=== PATIENT | female | born 1985 | race Two or more races ===

== ENCOUNTER 2024-09-01 11:43 | Emergency (ER) | payer MEDICAID, SELFPAY ==
[2024-09-01 11:54] VITALS: BP 145/89; PULSE 90; RESP 19; TEMP 36.6; O2SAT 98; BMI 36.9
--- NOTE | 2024-09-01 12:06 | XR_ITS ---
Examination: CT lumbar spine, without contrast. 2-D sagittal reconstructions. 2-D coronal reconstructions. 3-D reconstructions. Date and time of exam:09/01/2024, 12:25 PM INDICATION: Back pain CTDI: vol (mGy):35.3 DLP: (mGycm):78948 Technique: Multiple 1.25 mm axial sections of the lumbar spine have been obtained. 2-D sagittal and coronal reconstructions have been obtained. 3-D reconstructions have been obtained. Low dose protocols were performed. One or more of the following dose reduction techniques were used; automated exposure control, adjustment of the mA and/or KV according to patient size, use of iterative reconstruction technique. Findings: No evidence of fracture, dislocation or subluxation. Minimal degenerative changes are seen T12-S1 and S1-S2 with minimal loss of normal disc space height and small marginal osteophytes. No other significant degenerative changes seen. No foreign body. No soft tissue abnormality IMPRESSION: No acute bony abnormality. Mild degenerative changes as above.
--- NOTE | 2024-09-01 12:07 | PD.EDRME ---
Rapid Medical Screening Exam RME Arrival date/time: 09/01/24 11:43 39-year-old female presents emergency dept today for complaints of back pain Chief Complaint: Back Pain/Injury Time Seen by Provider: 09/01/24 12:00 Vital signs: Vital Signs Temperature 97.9 F 09/01/24 11:54 Pulse Rate 90 09/01/24 11:54 Respiratory Rate 19 09/01/24 11:54 Blood Pressure 145/89 H 09/01/24 11:54 Pulse Oximetry (%) 98 09/01/24 11:54
[2024-09-01 12:45] LABS: Collection Type, Urine Clean Catch
[2024-09-01 12:48] LABS: Basophils # (Auto) 0.1 Thou/mm3 (0.0-0.2); Basophils % (Auto) 1 % (0-2.5); Eosinophils # (Auto) 0.1 Thou/mm3 (0.0-0.5); Eosinophils % (Auto) 1 % (0-10); Hematocrit 42.8 % (36.0-46.0); Hemoglobin 14.4 g/dL (12.0-16.0); Immature Granulocytes % (Auto) 0 % (0-0); Immature Granulocytes Auto 0.01 Thou/mm3 (0.00-0.00); Lymphocytes # (Auto) 2.7 Thou/mm3 (1.0-4.8); Lymphocytes % (Auto) 33 % (10-50); Mean Corpuscular HGB Conc 33.6 g/dl (31.0-37.0); Mean Corpuscular Hemoglobin 30.2 pg (25.0-35.0); Mean Corpuscular Volume 90 fL (80-100); Monocytes # (Auto) 0.6 Thou/mm3 (0.0-0.8); Monocytes % (Auto) 7 % (0-12); Neutrophils # (Auto) 4.7 Thou/mm3 (1.8-7.7); Neutrophils % (Auto) 58 % (37-80); Nucleated Red Blood Cell % 0 /100 WBC (0); Platelet Count 270 Thou/mm3 (140-440); RDW Standard Deviation 44.3 fL (36.4-46.3); Red Blood Count 4.77 Miln/mm3 (4.00-5.20); White Blood Count 8.1 Thou/mm3 (3.6-11.0)
[2024-09-01 12:53] LABS: Bacteria,Urine Rare; Bilirubin,Urine Negative (Negative); Blood,Urine Negative (Negative); Clarity,Urine Clear (Clear/Hazy); Color,Urine Lt-Yellow (Lt Yel-Yel); Culture Indicated,Urine Not Indicated; Glucose, Urine Negative (Negative); Ketones,Urine Negative (Negative); Leukocyte Esterase,Urine Negative (Negative); Nitrite,Urine Negative (Negative); PH,Urine 5.5 (5.0-7.0); Protein,Urine Negative (Neg - Trace); RBC,Urine 1 /hpf (0-3); Specific Gravity,Urine 1.016 (1.001-1.035); Squamous Epithelial Cell,Urine 1 /hpf (0-5); Urobilinogen,Urine Negative mg/dL (0.0-1.0); WBC,Urine 1 /hpf (0-5)
[2024-09-01] MEDS: KETOROLAC INJ 30 MG/ML VIAL IM (12:56)
[2024-09-01 13:12] LABS: Alanine Aminotransferase 13 U/L (10-49); Albumin, Serum 4.6 gm/dL (3.5-5.0); Albumin/Globulin Ratio 1.5 (1.2-2.2); Alkaline Phosphatase 76 U/L (46-116); Anion Gap 8 (7-16); Aspartate Amino Transferase 12 U/L (0-34); BUN/Creatinine Ratio 12 Ratio (12-20); Bilirubin,Total 0.8 mg/dL (0.3-1.2); Blood Urea Nitrogen 11 mg/dL (9-23); Carbon Dioxide 25.6 mMol/L (20.0-31.0); Chloride 106 mMol/L (98-107); Creatinine (Component) 0.9 mg/dL (0.6-1.3); Estimated Creatinine Clearance 105.7 mL/min (>60); Glucose 89 mg/dL (74-106); Osmolality,Calculated 277 (275-295); Potassium 3.7 mMol/L (3.4-5.1); Sodium 140 mMol/L (136-145); Total Protein 7.6 gm/dL (5.7-8.2); eGFR > 60 See Note
--- NOTE | 2024-09-01 13:54 | EDNOTE_ITS ---
ED Back Injury Pain RME/HPI General Chief Complaint: Back Pain/Injury Stated Complaint: Lower back pain Time Seen by Provider: 09/01/24 12:00 Arrival date/time: 09/01/24 11:43 39-year-old female presents emergency dept today for complaints of back pain ongoing for last couple of days patient reports no saddle anesthesia no loss of bowel or bladder patient reports that she drove herself here today Limitations: no limitations RME / HPI RME / HPI Narrative: 09/01/24 11:43 39-year-old female presents emergency dept today for complaints of back pain Related Data Previous Rx's ?Medication ?Instructions ?Recorded cyclobenzaprine 10 mg tablet 10 mg PO TID PRN muscle s pasm 10 09/01/24 days #30 tab-caps hydrocodone 5 mg-acetaminophen 325 1 tab PO BID PRN pa in #10 tabs 09/01/24 mg tablet ibuprofen 800 mg tablet 800 mg PO TID PRN pain #30 t abs 09/01/24 Allergies Allergy/AdvReac Type Severity Reaction Status Date / Time No Known Allergies Allergy Verified 09/01/24 11:48 Review of Systems Review of Systems Systems Reviewed: All systems reviewed, normal except as documented Constitutional Constitutional: Reports system reviewed and no additional complaints, except as documented, Denies fever(s) and Denies headache(s) Eyes Eyes: Reports system reviewed and no additional complaints, except as documented and Denies blurry vision ENT Ears, Nose, Mouth, and Throat: Reports system reviewed and no additional complaints, except as documented, Denies headache(s), Denies nasal congestion and Denies nasal discharge Cardiovascular Cardiovascular: Reports system reviewed and no additional complaints, except as documented, Denies chest pain and Denies dyspnea Respiratory Respiratory: Reports system reviewed and no additional complaints, except as documented, Denies chest congestion, Denies cough and Denies dyspnea Gastrointestinal Gastrointestinal: Reports system reviewed and no additional complaints, except as documented and Denies abdominal pain Musculoskeletal Musculoskeletal: Reports system reviewed and no additional complaints, except as documented and Reports back pain Integumentary/Breasts Skin/Breast: Reports system reviewed and no additional complaints, except as documented and Denies rash Neurologic Neurologic: Reports system reviewed and no additional complaints, except as documented, Reports as per HPI and Denies headache(s) Past Medical History Past Medical History NEUROLOGIC: Positive Migraine (RARE); Negative Neurological Disorders or Seizures CARDIAC: Negative Cardiac Disorders or Congestive Heart Failure RESPIRATORY: Positive Bronchitis (2017 LAST USE OF INHALER); Negative Chronic Obstructive Pulmonary Disease (COPD) GASTROINTESTINAL: Positive Gastrointestinal Disorders, Gall Bladder Disease (LAP 2007) and Obesity GENITOURINARY: Negative Genitourinary Disorders or Renal Disease REPRODUCTIVE: Positive Endometriosis and Previous Pregnancies (X3) MUSCULOSKELETAL: Positive Musculoskeletal Disorders and Arthritis ENDOCRINE: Positive Endocrine Disorders; Negative Diabetes Mellitus Type 1 or Diabetes Mellitus Type 2 HEMATOLOGIC: Negative Blood Disorders PSYCHO/SOCIAL: Positive Depression (2016 NO MED) OTHER HISTORY: Positive Anesthesia Reactions (NAUSEA AND VOMITTING, ANESTHESIA AWARE) and Chicken Pox; Negative Hospitalization, Autoimmune Disease, Shingles, Falls, Blood Transfusions, Blood Transfusion Reaction, Chemotherapy, Radiation Therapy or MRSA Family History FAMILY HISTORY: Positive Family Cardiac Disorders (MOTHER,FATHER (HEART)), Family Gastrointestinal Problems (FATHER (ULCER)) and Family Surgery (MOTHER,FATHER); Negative Family Psychiatric Problems, Family Respiratory Disorders, Family Cancer or Family Anesthesia Reaction Surgical History SURGICAL: Positive Tubal Ligation (2018 0CT) and Section (X2); Negative Cardiac Surgery, Endocrine Surgery, Abdominal Surgery or Joint Replacement Social History SMOKING STATUS: Current some day smoker SECOND HAND EXPOSURE: No SUBSTANCE USE: does not use ED Exam General Limitations: Present no limitations General appearance: Present alert and in no apparent distress Head Head exam: Present atraumatic, normocephalic and normal inspection Eye Eye exam: Present normal appearance, PERRL and EOMI; Absent conjunctival injection ENT ENT exam: Present normal exam, normal oropharynx and mucous membranes moist Neck Neck exam: Present normal inspection, full ROM and trachea midline Chest Chest inspection: Present normal inspection and symmetric chest wall rise Respiratory Respiratory exam: Present normal lung sounds bilaterally; Absent respiratory distress Cardiovascular Cardiovascular exam: Present regular rate, normal rhythm and normal heart sounds Abdominal Exam Abdominal exam: Present soft and normal bowel sounds; Absent distention, tenderness, guarding, rebound or rigidity Extremities Exam Extremities exam: Present normal inspection and full ROM Back Exam Back exam: Present normal inspection, full ROM, tenderness, muscle spasm and paraspinal tenderness; Absent CVA tenderness (R) or CVA tenderness (L) Neurological Exam Neurological exam: Present alert, oriented X3 and CN II-XII intact Psychiatric Psychiatric exam: Present normal affect and normal mood Skin Skin exam: Present warm, dry, intact and normal color Course Quality Measures none Orders Category Date Time Status CT lumbar spine wo con Stat Exams 09/01/24 12:06 Completed CBC Stat Lab 09/01/24 12:37 Completed Comprehensive Metabolic Panel Stat Lab 09/01/24 12:37 Completed UA, C/S IF [Urinalysis, C/S if Indicated] Stat Lab 09/01/24 12:35 Completed Ketorolac Inj [Toradol Inj] Med 09/01/24 12:06 Discontinued 30 mg IM X1 ONE Vital Signs Vital signs: Vital Signs Temperature 97.9 F 09/01/24 11:54 Pulse Rate 90 09/01/24 11:54 Respiratory Rate 19 09/01/24 11:54 Blood Pressure 145/89 H 09/01/24 11:54 Pulse Oximetry (%) 98 09/01/24 11:54 O2 saturation 98% r.a wnl Back Pain / Injury MDM Narrative MDM Narrative:: 39-year-old female presents emergency dept today for complaints of back pain ongoing for last couple of days patient reports no saddle anesthesia no loss of bowel or bladder patient reports that she drove herself here today On exam patient well-appearing patient does not appear ill or toxic in no acute distress patient walks with steady gait Patient given Toradol for pain Lab work as well as imaging obtained no acute emergent findings noted patient does have chronic changes in her lumbar spine Patient discharged home in no distress to follow-up with primary care doctor in the next 24 to 48 hours and for any worsening symptoms to return to the ER immediately Patient data External records reviewed:: [facility] previous records Clinical information provided by:: patient Social determinants that could affect healthcare access:: none Patient has the following chronic illnesses:: None How is presenting disease/condition affected by chronic disease/condition?: no chronic disease Evaluation data The following diagnostics were reviewed and interpreted by me:: lab results and radiology exam(s) Lab and/or radiology exams considered but not ordered:: Labs radiology obtained Interpretation Summary: Reviewed by me Medications / Prescriptions Medications or Prescriptions considered but not ordered:: Given Medication administrations:: Medication Administration History Discontinued Medications Ketorolac Tromethamine (Ketorolac Inj 30 Mg/Ml Vial) 30 mg IM X1 ONE Stop: 09/01/24 12:07 Last Admin: 09/01/24 12:56 Dose: 30 mg Documented By: Given Consultations Consultation(s) initiated? (list below): No Diagnosis Differential diagnosis back pain/injury: lumbar radiculopathy and strain of lumbar region Most likely diagnosis given after review of the tests above:: Back pain DDD Admission Indicated Admission indicated?: not indicated Admission Request Was there a request for admission?: No Disposition Plan Disposition Plan: Discharge Discharge Attestation Discharge Attestation: The patient and all family members were given an opportunity to ask questions and understood the discharge instructions. Discharge instructions specifically effects, indications for sooner follow up or return to the emergency department, and the expected course of current diagnosis. Patient condition: Stable Discharge Plan Plan Patient Disposition: HOME (Self Care) Disposition Comment: Stable Prescriptions/Referrals Prescriptions/Med Rec: New cyclobenzaprine 10 mg tablet 10 mg PO TID PRN (Reason: muscle spasm) 10 Days Qty: 30 0RF ibuprofen 800 mg tablet 800 mg PO TID PRN (Reason: pain) Qty: 30 0RF hydrocodone-acetaminophen 5-325 mg tablet 1 tab PO BID MDD 10 PRN (Reason: pain) Qty: 10 0RF Referrals: Silvia Paredes NP [Primary Care Provider] - 09/04/24 Problem List Clinical Impression: Back pain, DDD (degenerative disc disease) Patient/Caregiver Discharge Instructions Education Materials: Back Safety: Lifting Additional Instructions: Please follow up with your primary care doctor in the next 24-48hrs for any worsening symptoms return here immediately Print Language: Czech Stand Alone Forms: Carmencita Award Info., Work/School Release, Patient Portal Info Letter PA/YESSICA Supervising Physician BRAYDEN/YESSICA Supervising Physician: Dr jiménez
== END 2024-09-01 14:11 | disposition home or self-care (01) ==
PROVIDERS: Nurse Practitioner Primary Care; Emergency Provider Emergency Medicine; PCP Nurse Practitioner Family
DX: M53.3 Sacrococcygeal disorders, not elsewhere classified (principal); M51.34 Other intervertebral disc degeneration, thoracic region
CPT/HCPCS: 36415; 72131; 80053; 81001; 85025; 96372; 99284; J1885

== ENCOUNTER 2024-12-05 08:56 | Outpatient (AMB) | payer MEDICAID, SELFPAY ==
[2024-12-05 09:17] VITALS: BP 125/86; PULSE 76; RESP 17; TEMP 36.6; O2SAT 96; BMI 38.4
--- NOTE | 2024-12-05 09:17 | AMB.GYNCLNOT ---
Vital Signs 12/05/24 09:17 Height 1.7 m Height Method Stated Weight 111.357 kg Weight Measurement Method Standing Scale BMI 38.4 BP 125/86 H Blood Pressure Source Automatic Cuff Blood Pressure Location Right Upper Arm Position Sitting Respiration 17 Pulse 76 Pulse Source Monitor Temp 97.9 F Temp Source Temporal Artery Scan Pulse Oximetry (%) 96 Oxygen Delivery Method Room Air Allergies/Home Meds Allergies & Medications Allergies No Known Allergies Allergy (Verified 12/05/24 09:18) Intake Visit Data Collection New Patient or Established: Established Patient (seen at [facility] within 3 years) Reason for Visit:: REFERRAL PELVIC PAIN REQUESTING HYSTERECTOMY Seen by Clinical Staff ONLY (RN/MA): No Tankroom 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 Discussed the benefits of quitting smoking with patient. Encouraged patient to quit smoking and provided Cessation assistance materials and resources. 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 1. Little interest or pleasure in doing things: not at all 2. Feeling down, depressed, or hopeless: not at all Total score: 0 PHQ-9 3. Trouble falling or staying asleep, or sleeping too much: Not at all 4. Feeling tired or having little energy: Not at all 5. Poor appetite or overeating: Not at all 6. Feeling bad about yourself - or that you are a failure or have let yourself or your family down: Not at all 7. Trouble concentrating on things, such as reading the newspaper or watching television: Not at all 8. Moving or speaking so slowly that other people could have noticed? - Or the opposite - being so fidgety or restless that you have been moving around a lot more than usual: not at all 9. Thoughts that you would be better off or of hurting yourself in some way: Not at all Total score: 0 If you checked off any problems, how difficult have these problems made it for you to do your work, take care of things at home, or get along with other people?: not difficult at all Source: Developed by Drs. Herman Rondon, Abigail Conti, Zeeshan Cardona and colleagues, with an educational mark from [employer]. Depression screen completed yes Social History Living Situation History Marital Status: Life Partner Lives With: Family Housing: [facility] Tobacco History Smoking Status: Current some day smoker Second Hand Smoke Exposure: No Alcohol History Alcohol Intake: Current Alcohol Intake Frequency: holidays/special occasions only Domestic Abuse History Do You Feel Safe at Home: Yes History of Present Illness HPI Narrative Paige Hendricks is a 39-year-old female, with a history of twins, one vaginal delivery, two C-sections, and endometriosis, presenting for consultation regarding pelvic pain and to discuss hysterectomy options. The patient reports a long history of painful and heavy menstrual periods, describing them as bad periods with heavy flow requiring extra-large pads and hourly tampon changes. She has undergone four endometriosis surgeries, a cyst removal surgery, and an ablation surgery in the past. While the ablation helped, she continues to experience severe cramps. The patient describes the pain as extending down to her knees and back, feeling almost like contractions. She reports that the pain is so severe it affects her at work, though she doesn't miss work due to it. Paige expresses frustration with her ongoing symptoms, stating, I'm just over it. I'm tired. She mentions considering a hysterectomy, noting that she is approaching 40, has completed her family, and has had her tubes tied. The patient is seeking information about the pros and cons of the procedure before making a decision. The patient's gynecological history is significant. She had her first menstrual period at age 12 and currently has regular cycles lasting 5 days, occurring every 24-28 days. Her last menstrual period was yesterday, December 05, 2024. She reports moderate flow and painful cycles. In 2006, she had bladder surgery for endometriosis, and in 2018, she underwent a repair procedure (specifics not provided). Her last Pap smear was reportedly normal. Paige is sexually active with male partners only and denies any new partners in the last 6 months. She does not use condoms and reports no history of sexually transmitted infections. The patient also mentions experiencing urinary incontinence, describing episodes of urine leakage with sneezing, coughing, and occasionally unprovoked. Regarding lifestyle factors, Paige reports being an occasional alcohol user and exercises regularly. She denies any safety concerns. ROS: General: Positive for fatigue. HEENT: Positive for eye irritation. Genitourinary: Positive for urinary incontinence with sneezing, coughing, and occasional gush. Musculoskeletal: Positive for knee pain and back pain associated with menstrual cramps. Endocrine: Positive for hot flushes (mentioned as potential symptom if ovaries are removed). Psychiatric: Positive for history of depression with hormonal medication. Other: Positive for heavy menstrual flow, painful menstrual cycles, and severe menstrual cramps. Exam General General Appearance: alert, in no apparent distress and healthy appearing Head Head exam: atraumatic Neck Neck exam: Present normal inspection and trachea midline Chest Chest inspection: Present normal inspection and symmetric chest wall rise External exam: Present normal external exam; Absent tenderness Neuro Neurological exam: Present oriented X3 Psych Psychiatric exam: Present normal affect and normal mood Office Procedures OB Clinic LOC & Office Proc's Nursing/Assessment Patient Status: Established Patient OB Clinic Nursing Assessment: Medication Reconciliation, Update PMH in EMR and Vital Signs OB Clinic Coordination of Care: Complex Care and Chronic Disease 1-5, Consent,records obtained, informed consent, Education Simp Pt/Fam, Lab and Imaging orders, Results/Orders obtained and Staff clarify orders Established Patient Charge Established Patient Point Assignment: 105 Established Patient Point Charge: EP Level 3 (80-115) Assessment & Plan Diagnosis / Problem List (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 (2) Endometriosis determined by laparoscopy: Status: Acute (3) Pelvic pain: Status: Acute (4) Abnormal uterine and vaginal bleeding, unspecified: Status: Acute (5) NIKKI (stress urinary incontinence, female): Status: Acute Plan Chronic pelvic pain and heavy menstrual bleeding Assessment: - Complex gynecological history including endometriosis and multiple surgeries - 4 endometriosis surgeries, cyst removal, and endometrial ablation - Persistent symptoms despite interventions - Current symptoms: severe menstrual cramps, heavy bleeding, pain radiating to back and knees - Symptoms significantly impacting quality of life - Previous treatments, including endometrial ablation, provided only partial relief - Experiencing post-ablation syndrome Plan: - Proceed with plans for total abdominal hysterectomy - Discuss risks, benefits, and alternatives with patient - Plan to preserve ovaries initially, with option for future oophorectomy if symptoms persist - Coordinate with plastic surgery techniques for incision closure due to history of wound dehiscence - Submit referral to insurance for authorization of hysterectomy - Refer to Dr. Baron (urology) for evaluation of stress urinary incontinence - Consider concurrent bladder sling procedure during hysterectomy if recommended - Schedule follow-up appointment to discuss procedure details and set surgery date once insurance authorization is obtained - Anticipate 4-6 weeks of post-operative recovery time - Provide work disability documentation as needed
== END 2024-12-05 10:30 | disposition home or self-care (01) ==
LOC: HODSOBC 08:56
PROVIDERS: PCP Nurse Practitioner Family; Referring Provider Nurse Practitioner Family; Supervising Provider Obstetrics & Gynecology; Visit Provider Obstetrics & Gynecology
DX: N99.85 Post endometrial ablation syndrome (principal); N93.9 Abnormal uterine and vaginal bleeding, unspecified; N39.3 Stress incontinence (female) (male); G89.29 Other chronic pain; N80.9 Endometriosis, unspecified; Z98.890 Other specified postprocedural states; Y83.8 Other surgical procedures as the cause of abnormal reaction of the patient, or of later complication, without mention of misadventure at the time of the procedure
CPT/HCPCS: 99213; G0463

== ENCOUNTER 2025-01-24 08:43 | Outpatient (AMB) | payer MEDICAID, SELFPAY ==
[2025-01-24 08:53] VITALS: BP 117/79; PULSE 88; RESP 16; TEMP 36.6; O2SAT 98; BMI 38.7
--- NOTE | 2025-01-24 08:53 | AMB.GYNCLNOT ---
Vital Signs 01/24/25 08:53 Height 1.7 m Height Method Stated Weight 112.151 kg Weight Measurement Method Standing Scale BMI 38.7 BP 117/79 Blood Pressure Source Automatic Cuff Blood Pressure Location Left Upper Arm Position Sitting Respiration 16 Pulse 88 Pulse Source Monitor Temp 97.9 F Temp Source Oral Pulse Oximetry (%) 98 Oxygen Delivery Method Room Air Allergies/Home Meds Allergies & Medications Allergies No Known Allergies Allergy (Verified 01/24/25 09:01) Medication Reconciliation cetirizine 10 mg tablet (Zyrtec) 10 mg PO QDAY PRN allergy symptoms 01/24/25 [History Confirmed 01/24/25] Intake Visit Data Collection New Patient or Established: Established Patient (seen at [facility] within 3 years) Reason for Visit:: PRE OP Seen by Clinical Staff ONLY (RN/MA): No Assembler Gold Frame Required: No Do You Feel Safe at Home: Yes Authorities Contacted: N/A PCP or OBGYN visit in last 3 months: Yes Hx Now: No Are you currently on any form of Control: No Last menstrual period: 01/22/25 Pain Present Currently: No Pain Scale Used: Wilhelm-Watson/Numerical Pain scale:: 0 Smoking Status Smoking Status: Former smoker 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 Menstrual regularity: regular Flow: normal Monthly: Yes How many days does period last: 6 Age at menarche: 13 Currently sexually active: Yes 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 1. Little interest or pleasure in doing things: not at all 2. Feeling down, depressed, or hopeless: not at all Total score: 0 PHQ-9 3. Trouble falling or staying asleep, or sleeping too much: Not at all 4. Feeling tired or having little energy: Not at all 5. Poor appetite or overeating: Not at all 6. Feeling bad about yourself - or that you are a failure or have let yourself or your family down: Not at all 7. Trouble concentrating on things, such as reading the newspaper or watching television: Not at all 8. Moving or speaking so slowly that other people could have noticed? - Or the opposite - being so fidgety or restless that you have been moving around a lot more than usual: not at all 9. Thoughts that you would be better off or of hurting yourself in some way: Not at all Total score: 0 Source: Developed by Drs. Herman Rondon, Abigail Conti, Zeeshan Cardona and colleagues, with an educational mark from [employer]. Depression screen completed yes Social History Living Situation History Lives With: Family Housing: House Tobacco History Smoking Status: Former smoker Second Hand Smoke Exposure: No Alcohol History Alcohol Intake: Never Alcohol Intake Frequency: holidays/special occasions only Domestic Abuse History Do You Feel Safe at Home: Yes History of Present Illness HPI Narrative Paige Hendricks presents for a preoperative visit prior to a scheduled total abdominal hysterectomy tomorrow. She has a history of multiple gynecologic surgeries, chronic pelvic pain, heavy menstrual bleeding, and failed endometrial ablation. The patient is scheduled for a total abdominal hysterectomy, which will include removal of the uterus, cervix, and fallopian tubes while preserving the ovaries. This decision was made due to her history of chronic pelvic pain and heavy menstrual bleeding, which have not been adequately managed by previous interventions, including an endometrial ablation. She also has a history of multiple gynecologic surgeries, including previous C-sections, which may contribute to the complexity of her case due to potential scar tissue. Paige has been experiencing urinary incontinence and was referred to a urologist, but has not yet seen her. As a result, any incontinence procedure will be performed separately from the hysterectomy. She has completed her pre-operative preparations and is scheduled for surgery tomorrow. She is expected to stay in the hospital for 2 nights post-surgery, with the possibility of discharge the following morning if her recovery progresses well. The main factors that may delay discharge include bowel function recovery and pain management. k. ROS: Genitourinary: Positive for incontinence. Exam General General Appearance: alert, in no apparent distress and healthy appearing Head Head exam: atraumatic Neck Neck exam: Present normal inspection and trachea midline Chest Chest inspection: Present normal inspection and symmetric chest wall rise External exam: Present normal external exam; Absent tenderness Neuro Neurological exam: Present oriented X3 Psych Psychiatric exam: Present normal affect and normal mood Office Procedures OB Clinic LOC & Office Proc's Nursing/Assessment Patient Status: Established Patient OB Clinic Nursing Assessment: Medication Reconciliation, Update PMH in EMR and Vital Signs OB Clinic Coordination of Care: Complex Care and Chronic Disease 1-5, Consent,records obtained, informed consent, Education Simp Pt/Fam, 1 Ins Authorization, Results/Orders obtained and Staff clarify orders Established Patient Charge Established Patient Point Assignment: 105 Established Patient Point Charge: EP Level 3 (80-115) Assessment & Plan Diagnosis / Problem List (1) Abnormal uterine and vaginal bleeding, unspecified: Status: Acute (2) Pelvic pain: Status: Acute (3) Endometriosis determined by laparoscopy: Status: Acute (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 - Scheduled for total abdominal hysterectomy with removal of uterus, cervix, and fallopian tubes while preserving ovaries. - Decision to remove cervix based on risk of future complications such as fibroids and continued bleeding. - Ovarian preservation planned to maintain hormone production and reduce risks of menopause symptoms and long-term health issues. Plan: - Perform total abdominal hysterectomy with bilateral salpingectomy, preserving ovaries. - Use previous incision site, clean up and remove scarred skin. - Anticipate potential scar tissue due to previous operations. - Hospital stay for 2 nights, with possible discharge the next morning if patient is doing well. - Monitor bowel function post-operatively. - Optimize pain medication combination. - Patient to arrive at hospital in regular clothes, will be changed into a gown. - Handle disability paperwork submission. Urinary Incontinence: - Patient has been referred to urologist for evaluation but has not yet been seen. - Incontinence procedure planned but will be performed separately from hysterectomy. Plan: - Await evaluation and treatment by urologist for incontinence procedure.
== END 2025-01-24 09:57 | disposition home or self-care (01) ==
LOC: HODSOBC 08:43
PROVIDERS: Supervising Provider Obstetrics & Gynecology; Visit Provider Obstetrics & Gynecology
DX: N93.9 Abnormal uterine and vaginal bleeding, unspecified (principal); N80.9 Endometriosis, unspecified; N99.85 Post endometrial ablation syndrome; Z87.891 Personal history of nicotine dependence; R32 Unspecified urinary incontinence
CPT/HCPCS: 99213; G0463

== ENCOUNTER 2025-01-25 05:49 | Inpatient (IN) | payer MEDICAID, SELFPAY ==
[2025-01-24 06:49] VITALS: BMI 38.8
[2025-01-24 07:44] LABS: Basophils # (Auto) 0.0 Thou/mm3 (0.0-0.2); Basophils % (Auto) 1 % (0-2.5); Eosinophils # (Auto) 0.1 Thou/mm3 (0.0-0.5); Eosinophils % (Auto) 2 % (0-10); Hematocrit 44.2 % (36.0-46.0); Hemoglobin 14.7 g/dL (12.0-16.0); Immature Granulocytes Auto 0.01 Thou/mm3 (0.00-0.00); Lymphocytes # (Auto) 2.3 Thou/mm3 (1.0-4.8); Lymphocytes % (Auto) 35 % (10-50); Mean Corpuscular HGB Conc 33.3 g/dl (31.0-37.0); Mean Corpuscular Hemoglobin 29.8 pg (25.0-35.0); Mean Corpuscular Volume 90 fL (80-100); Monocytes # (Auto) 0.4 Thou/mm3 (0.0-0.8); Monocytes % (Auto) 6 % (0-12); Neutrophils # (Auto) 3.7 Thou/mm3 (1.8-7.7); Neutrophils % (Auto) 56 % (37-80); Nucleated Red Blood Cell # 0.00 Thou/mm3 (0.00-0.00); Nucleated Red Blood Cell % 0 /100 WBC (0); Platelet Count 255 Thou/mm3 (140-440); RDW Standard Deviation 43.2 fL (36.4-46.3); Red Blood Count 4.94 Miln/mm3 (4.00-5.20); White Blood Count 6.5 Thou/mm3 (3.6-11.0)
[2025-01-24 07:57] LABS: HCG,Qualitative Serum Negative
[2025-01-24 08:03] LABS: Alanine Aminotransferase 15 U/L (10-49); Albumin, Serum 4.5 gm/dL (3.5-5.0); Albumin/Globulin Ratio 1.8 (1.2-2.2); Alkaline Phosphatase 66 U/L (46-116); Anion Gap 10 (7-16); Aspartate Amino Transferase 12 U/L (0-34); BUN/Creatinine Ratio 12 Ratio (12-20); Bilirubin,Total 1.1 mg/dL (0.3-1.2); Blood Urea Nitrogen 11 mg/dL (9-23); Calcium 9.7 mg/dL (8.3-10.6); Calcium (Corrected) 9.7 mg/dL (8.5-10.1); Carbon Dioxide 26.5 mMol/L (20.0-31.0); Chloride 106 mMol/L (98-107); Creatinine (Component) 0.9 mg/dL (0.6-1.3); Estimated Creatinine Clearance 108.6 mL/min (>60); Globulin 2.5 gm/dL (2.3-3.5); Glucose 103 mg/dL (74-106); Osmolality,Calculated 282 (275-295); Potassium 4.6 mMol/L (3.4-5.1); Sodium 142 mMol/L (136-145); Total Protein 7.0 gm/dL (5.7-8.2); eGFR > 60 See Note
[2025-01-25] VITALS (16 sets, daily range): BP systolic 106–132; BP diastolic 69–87; PULSE 61–79; RESP 15–20; TEMP 35.6–36.8; O2SAT 93–100; BMI 38.7
--- NOTE | 2025-01-25 09:20 | PD.GYNPROC ---
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 Identity was verified using two patient identifiers. General anesthesia was administered and the patient was placed in the supine position. The abdomen and perineum were prepped and draped in the usual sterile fashion. A Ribeiro catheter was inserted for continuous drainage, and a surgical timeout was completed. A Pfannenstiel incision was made through the patient?s old low-transverse section scar, which was noted to be very low, nearly at the level of the symphysis pubis. Upon entering the subcutaneous tissue, dense scar tissue was encountered, and the rectus fascia was difficult to identify. Adhesions in this layer were taken down using a combination of sharp dissection and electrocautery. After careful dissection, the fascia was eventually identified and incised transversely. The fascia was dissected off the underlying rectus muscles, which were in the midline. The peritoneum was entered bluntly. Following peritoneal entry, the remainder of the case proceeded in standard fashion. A self-retaining retractor was placed, and the bowel was packed out of the pelvis. The uterus was noted to be enlarged and consistent with intramural leiomyomata. The adnexa were visualized bilaterally and appeared grossly normal. Dissection was carried out starting from the right side. The round ligament, fallopian tube, and utero-ovarian ligament were sequentially clamped, transected, and ligated. The broad ligament was opened, and the bladder flap was developed. The posterior leaf of the broad ligament was followed down to the uterosacral ligaments. The uterine artery was skeletonized, clamped, and ligated bilaterally. The same procedure was repeated on the left side. The uterus was removed in its entirety and sent to pathology. The fimbriated end of the right fallopian tube which was previously divided during her tubal ligation was identified and grasped using a [place] clamp. It was dissected off from the mesosalpinx using the Enseal device. The same procedure was repeated on the left side. Hemostasis was noted to be satisfactory on both dissection sites. The vaginal cuff was closed using 0-Vicryl in a running locked fashion. Additional [id number] sutures were placed to control bleeding from the cuff edges and the bladder peritoneum. Hemostasis was confirmed throughout. The peritoneal cavity was irrigated and inspected. All dissection sites were hemostatic. The Pollo retractor was removed. The fascia was closed with 1-PDS in a running fashion. The Scarpas fascia was closed with 0-Vicryl, and the subcutaneous fat was re-approximated with 2-0 Vicryl. The skin was closed using 4-0 Monocryl in a subcuticular fashion. Dermabond Prineo was applied, followed by a pressure dressing. An abdominal binder was placed in the operating room. The patient was undraped, extubated, and transferred to the recovery room in stable condition. She tolerated the procedure well. All instrument, sponge, and lap counts were correct ?2. No complications encountered. Specimen: uterus, left tube and right tube Estimated blood loss (ml): 150 Complications: none Surgical staff Operation Date: 01/25/25 07:30 Case Staff Anesthesiologist: Carlos Rascon RN First Assistant: Brit Vang Diagnosis Discharge Diagnosis (1) NIKKI (stress urinary incontinence, female): Status: Acute (2) Abnormal uterine and vaginal bleeding, unspecified: Status: Acute (3) Pelvic pain: Status: Acute (4) Endometriosis determined by laparoscopy: Status: Acute (5) Post endometrial ablation syndrome: Status: Acute Problem List Completed Was Problem List Reviewed/Reconciled?: Yes
--- NOTE | 2025-01-25 09:23 | SUR.PHASEI ---
pt received to [facility]. vss. breathing even and unlabored, dressing to abdomen cdi with abdominal binder. fc draining to gravity. pt awake and alert. denies pain and nausea. report from dr hudson and nurse elizabeth.
[2025-01-25] MEDS: RINGERS LACTATED 1000 ML 1,000 ML 20 ML IV (09:32)
[2025-01-25] MEDS: fentaNYL CIT INJ 50 mCg/ML AMP 2ML 25 MCG IVP (09:37)
[2025-01-25] MEDS: HYDROmorphone 1 MG/ML PCA SYRINGE 30ML PCA (09:43)
[2025-01-25] MEDS: SODIUM CHLORIDE 0.9% 1000 ML 1,000 ML 200 ML IV ×2 (09:50→15:34)
--- NOTE | 2025-01-25 10:08 | SUR.PHASEI ---
pt resting comfortably with eyes closed. denies pain and nausea. vss. breathing even and unlabored. stated pain relief after iv injection and wellness coach loading dose.
--- NOTE | 2025-01-25 10:30 | SUR.PHASEI ---
report called to michael on ms. pt transported to room via bed. vss. breathing even and unlabored. denies pain and nausea. dressing remains cdi. fc draining to gravity.
[2025-01-25] MEDS: ONDANSETRON INJ 2 MG/ML INJ 2 ML 4 MG IV (11:17)
[2025-01-25] MEDS: Milk Of Magnesia Susp 30 ML UDC PO (13:22)
[2025-01-25] MEDS: ACETAMINOPHEN IVPB 1,000 MG/100 ML VIAL 250 MG IV (13:22)
[2025-01-26] VITALS (7 sets, daily range): BP systolic 111–125; BP diastolic 65–81; PULSE 73–85; RESP 16–21; TEMP 36.3–37.6; O2SAT 93–98
[2025-01-26] MEDS: ONDANSETRON INJ 2 MG/ML INJ 2 ML 4 MG IV ×2 (01:47→09:49)
[2025-01-26 06:37] LABS: Basophils # (Auto) 0.0 Thou/mm3 (0.0-0.2); Basophils % (Auto) 0 % (0-2.5); Eosinophils # (Auto) 0.0 Thou/mm3 (0.0-0.5); Eosinophils % (Auto) 0 % (0-10); Hematocrit 36.9 % (36.0-46.0); Hemoglobin 12.4 g/dL (12.0-16.0); Immature Granulocytes Auto 0.03 Thou/mm3 (0.00-0.00); Lymphocytes # (Auto) 1.6 Thou/mm3 (1.0-4.8); Lymphocytes % (Auto) 16 % (10-50); Mean Corpuscular HGB Conc 33.6 g/dl (31.0-37.0); Mean Corpuscular Hemoglobin 30.4 pg (25.0-35.0); Mean Corpuscular Volume 90 fL (80-100); Monocytes # (Auto) 0.6 Thou/mm3 (0.0-0.8); Monocytes % (Auto) 6 % (0-12); Neutrophils # (Auto) 7.8 Thou/mm3 (1.8-7.7); Neutrophils % (Auto) 77 % (37-80); Nucleated Red Blood Cell # 0.00 Thou/mm3 (0.00-0.00); Nucleated Red Blood Cell % 0 /100 WBC (0); Platelet Count 192 Thou/mm3 (140-440); RDW Standard Deviation 43.4 fL (36.4-46.3); Red Blood Count 4.08 Miln/mm3 (4.00-5.20); White Blood Count 10.1 Thou/mm3 (3.6-11.0)
[2025-01-26 07:00] LABS: Anion Gap 10 (7-16); BUN/Creatinine Ratio 10 Ratio (12-20); Blood Urea Nitrogen 8 mg/dL (9-23); Calcium 8.6 mg/dL (8.3-10.6); Carbon Dioxide 25.1 mMol/L (20.0-31.0); Chloride 105 mMol/L (98-107); Creatinine (Component) 0.8 mg/dL (0.6-1.3); Estimated Creatinine Clearance 119.8 mL/min (>60); Glucose 157 mg/dL (74-106); Osmolality,Calculated 280 (275-295); Potassium 4.2 mMol/L (3.4-5.1); Sodium 140 mMol/L (136-145); eGFR > 60 See Note
[2025-01-26] MEDS: DOCUSATE SOD 100 MG CAPSULE PO (08:20)
--- NOTE | 2025-01-26 08:40 | ESPR_ITS ---
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 Pain is adequately controlled on the current regimen. No incisional complaints, no chest pain, shortness of breath, breathing difficulties. Ambulating, tolerating p.o., Adequate UOP Exam Vital Signs Temp Pulse Resp BP Pulse Ox O2 Del Method O2 Flow Rate 99.6 F 78 21 H 111/69 94 L Room Air 2 01/26/25 04:00 01/26/25 07:11 01/26/25 07:15 01/26/25 04:00 01/26/25 07:11 01/26/25 04:00 01/26/25 07:11 Constitutional Constitutional: no acute distress Routine HEENT Exam Head: Present normocephalic and atraumatic Eye: Present EOMI and PERRL ENT: Present mucous membranes moist Routine Neck Exam Neck: Present supple and trachea midline Routine Respiratory Exam Respiratory: Present chest non-tender, lungs clear, normal breath sounds and no resp distress Routine Cardiovascular Exam Cardiovascular: Present RRR Routine Abdominal Exam Abdominal: Present soft and normoactive bowel sounds Routine Extremities Exam Extremities: Present full ROM Routine Skin Exam Skin: Present intact and dry Routine Neurological Exam Neurological: Present alert, oriented X3 and CN II-XII intact Routine Psychiatric Exam Psychiatric: Present normal affect and normal thought process Urinary Catheter Management Cath placed during this visit: no PLASTIC PRODUCTION MACHINE SETTER - PN: Obj Data Labs 01/26/25 05:50 01/26/25 05:50 Labs: Laboratory Results - last 24 hr 01/26/25 05:50 WBC 10.1 D RBC 4.08 Hgb 12.4 D Hct 36.9 MCV 90 MCH 30.4 MCHC 33.6 RDW Std Deviation 43.4 Plt Count 192 D Neut % (Auto) 77 Lymph % (Auto) 16 Young % (Auto) 6 Eos % (Auto) 0 Baso % (Auto) 0 Neut # (Auto) 7.8 H Lymph # (Auto) 1.6 Young # (Auto) 0.6 Eos # (Auto) 0.0 Baso # (Auto) 0.0 Immature Gran # (Auto) 0.03 H Absolute Nucleated RBC 0.00 Immature Gran % 0 Nucleated RBC % 0 Sodium 140 Potassium 4.2 Chloride 105 Carbon Dioxide 25.1 Anion Gap 10 BUN 8 L Creatinine 0.8 Estim Creat Clear Calc 119.8 eGFR > 60 BUN/Creatinine Ratio 10 L Glucose 157 H D Calculated Osmolality 280 Calcium 8.6 PLASTIC PRODUCTION MACHINE 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 Continue routine post operative care 2. Transition to PO meds. 3. Encourage to ambulate 4. Anticipate discharge home tomorrow. 5. Home care instructions reviewed (3) Pelvic pain: Status: Acute (4) Endometriosis determined by laparoscopy: Status: Acute (5) Post endometrial ablation syndrome: Status: Acute Postoperative Procedures: Procedures Operation Date: 01/25/25 07:30 Actual Procedure Side Surgeon p Total Abdominal Hysterectomy, bilateral salphingectomy Bulmaro Uribe MD Time Spent With Patient Time: Total time spent is greater than 50% in coordination of care (as documented) at patient's floor/unit and/or counseling patient: Time with patient: less than 15 minutes
[2025-01-26] MEDS: LACTULOSE SYRUP 20 GM/30 ML UDC 10 GM PO (09:49)
[2025-01-26] MEDS: HYDROcodone/APAP 5/325 TABLET 1 TAB PO (09:49)
--- NOTE | 2025-01-26 10:45 | CHAP ---
Had a brief visit with patient who expressed gratitude.
--- NOTE | 2025-01-26 12:23 | PC.SS ---
Paige Hendricks is a 39-year-old female admitted to Med Surg for SATNAM. SS conducted bedside contact with the patient to complete initial assessment and to discuss discharge planning. Role and reason explained. Patient confirmed demographic information. Patient identifies Tico Salinas [phone] as her surrogate decision maker. Pt states she is able to complete all ADL?s independently. No need for any source of DME. Pts PCP is at [facility] not sure of name. Pharmacy of choice is [facility] on [address] Discharge options discussed and the pt wishes to return home.? Family will provide transportation upon DC. No further intervention required at this time, social media executive would be available to address any further concerns. DC Plan: Home Contact: Tico PINTO Address: Confirmed on face sheet PCP: [facility]
== END 2025-01-26 15:01 | disposition home or self-care (01) | DRG 519 ==
LOC: S2W1 07:11 → S3SX 11:07
PROVIDERS: Admitting Provider Obstetrics & Gynecology; PCP Family Medicine; Visit Provider Obstetrics & Gynecology
PROC: 0UT90ZZ Resection of Uterus, Open Approach (ICD-10-PCS; principal; 2025-01-25 07:30)
DX: D25.1 Intramural leiomyoma of uterus (principal); N39.3 Stress incontinence (female) (male); N99.85 Post endometrial ablation syndrome; N80.9 Endometriosis, unspecified; N93.9 Abnormal uterine and vaginal bleeding, unspecified
CPT/HCPCS: 36415; 80048; 80053; 84703; 85025; 86850; 86900; 86901; A4217; A4649; J0131; J0690; J1885; J2250; J2405; J2704; J3010; J3490; J7030; J7120; A9270

== ENCOUNTER 2025-02-12 08:44 | Outpatient (AMB) | payer MEDICAID, SELFPAY ==
--- NOTE | 2025-02-12 08:55 | GYNCLNT_ITS ---
Vital Signs 02/12/25 08:56 Height 1.7 m Height Method Measured Weight 113.568 kg Weight Measurement Method Standing Scale BMI 39.2 BP 115/83 Blood Pressure Source Automatic Cuff Blood Pressure Location Right Upper Arm Position Sitting Respiration 18 Pulse 96 Pulse Source Monitor Temp 98.0 F Temp Source Temporal Artery Scan Pulse Oximetry (%) 96 Oxygen Delivery Method Room Air Allergies/Home Meds Allergies & Medications Allergies No Known Allergies Allergy (Verified 01/25/25 06:24) Intake Visit Data Collection New Patient or Established: Established Patient (seen at [facility] within 3 years) Reason for Visit:: POST OP Application Integrator Required: No Do You Feel Safe at Home: Yes Authorities Contacted: N/A PCP or OBGYN visit in last 3 months: Yes Pain Present Currently: Yes Pain Location: Abdomen (PAIN WHEN BM AND URINATING) Pain scale:: 5 Smoking Status Smoking Status: 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 1. Little interest or pleasure in doing things: not at all PHQ-9 8. Moving or speaking so slowly that other people could have noticed? - Or the opposite - being so fidgety or restless that you have been moving around a lot more than usual: not at all Source: Developed by Drs. Herman Rondon, Abigail Conti, Zeeshan Cardona and colleagues, with an educational mark from [employer]. Social History Living Situation History Lives With: Family Housing: House Tobacco History Smoking Status: Never smoker Second Hand Smoke Exposure: No Alcohol History Alcohol Intake: Current Alcohol Intake Frequency: A Few Times a Month Domestic Abuse History Do You Feel Safe at Home: Yes History of Present Illness HPI Narrative The patient is a female presenting for a postoperative follow-up visit approximately two weeks after a complex gynecological surgery involving the uterus and bladder. She reports ongoing urinary leakage and pain associated with urination and defecation. The patient describes experiencing pain and cramping when she has the urge to urinate. She states, It's just like when I have the urge to pee, I can feel the pain. The urinary leakage occurs intermittently, with the patient noting, I'll let it come out and it'll stop and then I'll come out some more. She also reports daily bowel movements that are painful, likely due to pressure on the surgical site during defecation. Despite these symptoms, the patient reports increasing activity levels. She is walking daily and participating in light activities such as grocery shopping with her 's assistance. She mentions being able to lie on her side now, which was previously uncomfortable. The patient expresses a desire to become more active in her recovery, in line with medical recommendations. The patient's functioning has improved since the immediate postoperative period. She is now able to engage in light household activities and short outings, though she still requires assistance with tasks involving lifting or pushing heavy objects. She is currently on disability leave and expected to return to work on March 24. She lives with her and walks daily. ROS: Positive for constipation, pain with bowel movements, urinary leakage, pain with urination, frequent urination, and back pain. Exam Narrative Physical exam: - Abdominal: Incision site examined. Appears to be healing well. General General Appearance: alert, in no apparent distress and healthy appearing Head Head exam: atraumatic Neck Neck exam: Present normal inspection and trachea midline Chest Chest inspection: Present normal inspection and symmetric chest wall rise External exam: Present normal external exam; Absent tenderness Neuro Neurological exam: Present oriented X3 Psych Psychiatric exam: Present normal affect and normal mood Assessment & Plan Diagnosis / Problem List (1) NIKKI (stress urinary incontinence, female): Status: Acute (2) Abnormal uterine and vaginal bleeding, unspecified: Status: Acute Plan Post-operative recovery from gynecological surgery: - Patient is approximately 2 weeks post-operative from complex gynecological surgery involving bladder detachment from the uterus. - Ongoing urinary leakage with associated pain and cramping likely due to surgical manipulation of the bladder. - Discomfort with bowel movements possibly related to pressure on surgical site. - Overall recovery progressing well with incision site healing appropriately, no signs of infection or complications. Plan: - Remove surgical tape from incision site. - Discontinue wound dressing. - Encourage gradual increase in physical activity as tolerated: ? Continue daily walking. ? Avoid pushing heavy shopping carts or lifting heavy bags. - Advise on sleep positioning: ? No restrictions on side-lying or prone positions. ? Recommend use of body pillow for support if needed. - Follow-up appointment scheduled for first week of February to assess recovery progress. - Potential clearance for return to work if recovery progresses well. - Disability leave extended until March 24. Urinary incontinence: - Ongoing urinary leakage likely temporary post-operative complication due to bladder involvement in recent surgery. - Pain and cramping with urination attributed to bladder detachment during procedure. Plan: - Continue monitoring symptoms. - Reassess at next follow-up appointment. Post-operative constipation: - Pain during bowel movements likely due to pressure on surgical site as stool passes through rectum. - Normal post-operative symptom given proximity of surgical area to bowel. Plan: - Continue monitoring symptoms. - Reassess at next follow-up appointment.
[2025-02-12 08:56] VITALS: BP 115/83; PULSE 96; RESP 18; TEMP 36.7; O2SAT 96; BMI 39.2
== END 2025-02-12 09:37 | disposition home or self-care (01) ==
LOC: HODSOBC 08:44
PROVIDERS: PCP Family Medicine; Referring Provider Family Medicine; Supervising Provider Obstetrics & Gynecology; Visit Provider Obstetrics & Gynecology
DX: Z48.816 Encounter for surgical aftercare following surgery on the genitourinary system (principal); N39.3 Stress incontinence (female) (male); N93.9 Abnormal uterine and vaginal bleeding, unspecified; K59.09 Other constipation; Z98.890 Other specified postprocedural states
CPT/HCPCS: 99214; G0463

== ENCOUNTER 2025-02-21 08:54 | Outpatient (AMB) | payer MEDICAID, SELFPAY ==
[2025-02-21 09:19] VITALS: BP 114/79; PULSE 91; RESP 18; TEMP 36.2; O2SAT 98; BMI 38.9
--- NOTE | 2025-02-21 09:19 | GYNCLNT_ITS ---
Vital Signs 02/21/25 09:19 Height 1.7 m Height Method Stated Weight 112.604 kg Weight Measurement Method Standing Scale BMI 38.9 BP 114/79 Blood Pressure Source Automatic Cuff Blood Pressure Location Right Lower Arm Position Sitting Respiration 18 Pulse 91 Pulse Source Monitor Temp 97.2 F Temp Source Oral Pulse Oximetry (%) 98 Oxygen Delivery Method Room Air Allergies/Home Meds Allergies & Medications Allergies No Known Allergies Allergy (Verified 02/27/25 08:47) Medication Reconciliation cetirizine 10 mg tablet (Zyrtec) 10 mg PO QDAY PRN allergy symptoms 01/24/25 [History Confirmed 02/26/25] pantoprazole 40 mg tablet,delayed release 40 mg PO QDAY 30 days #30 tabs 01/26/25 [Rx Confirmed 02/26/25] levofloxacin 500 mg tablet 500 mg PO QDAY 14 days #14 tabs 02/26/25 [Rx] ondansetron 4 mg disintegrating tablet 4 mg PO Q6H PRN nausea and vomiting 5 days #20 tabs 02/26/25 [Rx] Intake Visit Data Collection New Patient or Established: Established Patient (seen at [facility] [place] within 3 years) Reason for Visit:: OBC OP Seen by Clinical Staff ONLY (RN/MA): No 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 Do You Feel Safe at Home: Yes Authorities Contacted: N/A PCP or OBGYN visit in last 3 months: Yes Date of Last PCP or OBGYN visit: 02/12/25 Hx Now: No Are you currently on any form of Control: No Pain Present Currently: No Pain Scale Used: Wilhelm-Watson/Numerical Pain scale:: 0 Smoking Status Smoking Status: Never smoker 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 Menstrual regularity: regular Flow: normal Monthly: Yes Menopausal: No Currently sexually active: Yes 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: Past Medical History Past Medical History: No Hx Neurological Disorders, No Hx Hypothyroidism, No Hx Hyperthyroidism, No Hx Cardiac Disorders, No Hx Hypertension, No Hx Blood Di sorders, No Hx Anemia, No Hx Gastrointestinal Disorders, No Hx Renal Disease, No Hx Deep Vein Thrombosis, No Hx Diabetes Mellitus Type 1, No Hx Diabetes Mellitus Type 2, Yes Hx Tubal Ligation, No Hx Hysterectomy and No Psychiatric Problems Questionnaires Covid-19 Vaccine Questionnaire Has patient been vacinated for Covid-19 Have you been vacinated for Covid-19: Yes PHQ-9 PHQ-2 Over the last 2 weeks, how often have you been bothered by any of the following problems? 1. Little interest or pleasure in doing things: not at all 2. Feeling down, depressed, or hopeless: not at all Total score: 0 PHQ-9 3. Trouble falling or staying asleep, or sleeping too much: Not at all 4. Feeling tired or having little energy: Not at all 5. Poor appetite or overeating: Not at all 6. Feeling bad about yourself - or that you are a failure or have let yourself or your family down: Not at all 7. Trouble concentrating on things, such as reading the newspaper or watching television: Not at all 8. Moving or speaking so slowly that other people could have noticed? - Or the opposite - being so fidgety or restless that you have been moving around a lot more than usual: not at all 9. Thoughts that you would be better off or of hurting yourself in some way: Not at all Total score: 0 If you checked off any problems, how difficult have these problems made it for you to do your work, take care of things at home, or get along with other people?: not difficult at all Source: Developed by Drs. Herman Rondon, Abigail Conti, Zeeshan Cardona and colleagues, with an educational mark from [employer]. Depression screen completed yes Social History Living Situation History Lives With: Family Housing: House Tobacco History Smoking Status: Never smoker Second Hand Smoke Exposure: No Alcohol History Alcohol Intake: Current Alcohol Intake Frequency: A Few Times a Month Domestic Abuse History Do You Feel Safe at Home: Yes History of Present Illness HPI Narrative Lexii Hendricks presents with ongoing vaginal bleeding following her total abdominal hysterectomy 2 weeks ago, describing the discharge as brownish in color. She reports significant discomfort and itching all over her body. The patient has been taking multiple showers daily, up to 3 times per day, in an attempt to manage her symptoms. She expresses concern about the discharge, stating she has never experienced anything like this before. Lexii also reports some pain, though she indicates it has improved since her surgery. She has a history of total abdominal hysterectomy approximately 2 weeks ago, which was complicated by postoperative vaginal cuff infection. The patient was prescribed an antibiotic for her symptoms but has not yet started the medication as she had not received notification from the pharmacy. She denies any bright red bleeding, noting only the brownish discharge. The patient has been prescribed an antibiotic recently but hasn't started taking it yet. She reports taking multiple showers daily to manage her symptoms. Lexii expresses significant concern about her current symptoms, as she has never experienced anything like this before in her 39 years. She is a 39-year-old female. The patient reports taking multiple showers daily and lives with concerns about her postoperative recovery. ROS: Positive for itching all over, vaginal discharge, and vaginal bleeding. Negative except as stated above. Exam Narrative Physical exam: - Gynecologic: Vaginal cuff examined. Probed with Q-tip, stitches feel intact. Discharge present. No bright red blood observed. General General Appearance: alert, in no apparent distress and healthy appearing Head Head exam: atraumatic Neck Neck exam: Present normal inspection and trachea midline Chest Chest inspection: Present normal inspection and symmetric chest wall rise External exam: Present normal external exam; Absent tenderness Neuro Neurological exam: Present oriented X3 Psych Psychiatric exam: Present normal affect and normal mood Office Procedures OBC Clinic LOC & Office Proc's Nursing/Assessment Patient Status: Established Patient OB Clinic Nursing Assessment: Medication Reconciliation, Update PMH in EMR and Vital Signs OB Clinic Coordination of Care: Education Complex Pt/Fam, Consent,records obtained, informed consent, Lab and Imaging orders, Results/Orders obtained and Staff clarify orders Established Patient Charge Established Patient Point Assignment: 85 Established Patient Point Charge: EP Level 3 (80-115) Assessment & Plan Diagnosis / Problem List (1) Adverse drug event: Status: Acute (2) Vaginal cuff cellulitis: Status: Acute (3) Postoperative wound infection: Status: Acute (4) Peritonitis, unspecified: Status: Acute Plan Post-operative vaginal cuff infection: - Persistent vaginal bleeding and itching 2 weeks after total abdominal hysterectomy. - Examination reveals discharge from vaginal cuff with intact stitches. - Culture swab obtained for bacterial analysis. Plan: - Continue previously prescribed oral antibiotic. - Prescribe topical vaginal cream for additional treatment. - Patient to start both medications immediately. - Follow up in 5 days for reassessment and review of culture results. - Patient instructed to call if any issues with obtaining medications or if symptoms worsen.
== END 2025-02-21 09:40 | disposition home or self-care (01) ==
LOC: HODSOBC 08:54
PROVIDERS: Supervising Provider Obstetrics & Gynecology; Visit Provider Obstetrics & Gynecology
DX: T81.43XA Infection following a procedure, organ and space surgical site, initial encounter (principal); N73.2 Unspecified parametritis and pelvic cellulitis; K65.9 Peritonitis, unspecified; N93.9 Abnormal uterine and vaginal bleeding, unspecified; T88.7XXA Unspecified adverse effect of drug or medicament, initial encounter; T50.905A Adverse effect of unspecified drugs, medicaments and biological substances, initial encounter; Z90.710 Acquired absence of both cervix and uterus; Y83.6 Removal of other organ (partial) (total) as the cause of abnormal reaction of the patient, or of later complication, without mention of misadventure at the time of the procedure
CPT/HCPCS: 99213; G0463

== ENCOUNTER 2025-02-26 08:19 | Outpatient (AMB) | payer MEDICAID, SELFPAY ==
--- NOTE | 2025-02-26 08:31 | AMB.GYNCLNOT ---
Vital Signs 02/26/25 08:32 Height 1.7 m Height Method Stated Weight 113.852 kg Weight Measurement Method Standing Scale BMI 39.4 BP 106/76 Blood Pressure Source Automatic Cuff Blood Pressure Location Right Upper Arm Position Sitting Respiration 17 Pulse 89 Pulse Source Monitor Temp 98.6 F Temp Source Temporal Artery Scan Pulse Oximetry (%) 96 Oxygen Delivery Method Room Air Allergies/Home Meds Allergies & Medications Allergies No Known Allergies Allergy (Verified 02/26/25 08:33) Medication Reconciliation cetirizine 10 mg tablet (Zyrtec) 10 mg PO QDAY PRN allergy symptoms 01/24/25 [History Confirmed 02/26/25] pantoprazole 40 mg tablet,delayed release 40 mg PO QDAY 30 days #30 tabs 01/26/25 [Rx Confirmed 02/26/25] levofloxacin 500 mg tablet 500 mg PO QDAY 14 days #14 tabs 02/26/25 [Rx] ondansetron 4 mg disintegrating tablet 4 mg PO Q6H PRN nausea and vomiting 5 days #20 tabs 02/26/25 [Rx] Intake Visit Data Collection New Patient or Established: Established Patient (seen at [facility] within 3 years) Reason for Visit:: F/U POST OP Seen by Clinical Staff ONLY (RN/MA): No Electrical 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: No Do You Feel Safe at Home: Yes Authorities Contacted: N/A PCP or OBGYN visit in last 3 months: Yes Date of Last PCP or OBGYN visit: 02/21/25 Hx Now: No Are you currently on any form of Control: No Pain Present Currently: Yes Pain Location: Abdomen Pain Scale Used: Wilhelm-Watson/Numerical Pain scale:: 6 Smoking Status Smoking Status: Never smoker 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 Age at menarche: 12 Currently sexually active: Yes 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: Past Medical History Past Medical History: No Hx Neurological Disorders, No Hx Hypothyroidism, No Hx Hyperthyroidism, No Hx Cardiac Disorders, No Hx Hypertension, No Hx Blood Disorders, No Hx Anemia, No Hx Gastrointestinal Disorders, No Hx Renal Disease, No Hx Deep Vein Thrombosis, No Hx Diabetes Mellitus Type 1, No Hx Diabetes Mellitus Type 2, Yes Hx Tubal Ligation, No Hx Hysterectomy and No Psychiatric Problems Questionnaires Covid-19 Vaccine Questionnaire Has patient been vacinated for Covid-19 Have you been vacinated for Covid-19: Yes PHQ-9 PHQ-2 Over the last 2 weeks, how often have you been bothered by any of the following problems? 1. Little interest or pleasure in doing things: not at all 2. Feeling down, depressed, or hopeless: not at all Total score: 0 PHQ-9 3. Trouble falling or staying asleep, or sleeping too much: Not at all 4. Feeling tired or having little energy: Not at all 5. Poor appetite or overeating: Not at all 6. Feeling bad about yourself - or that you are a failure or have let yourself or your family down: Not at all 7. Trouble concentrating on things, such as reading the newspaper or watching television: Not at all 8. Moving or speaking so slowly that other people could have noticed? - Or the opposite - being so fidgety or restless that you have been moving around a lot more than usual: not at all 9. Thoughts that you would be better off or of hurting yourself in some way: Not at all Total score: 0 If you checked off any problems, how difficult have these problems made it for you to do your work, take care of things at home, or get along with other people?: not difficult at all Source: Developed by Drs. Herman Rondon, Abigail Conti, Zeeshan Cardona and colleagues, with an educational mark from [employer]. Depression screen completed yes Social History Living Situation History Marital Status: Lives With: Family Housing: House Tobacco History Smoking Status: Never smoker Second Hand Smoke Exposure: No Alcohol History Alcohol Intake: Current Alcohol Intake Frequency: A Few Times a Month Domestic Abuse History Do You Feel Safe at Home: Yes History of Present Illness HPI Narrative Paige Hendricks presents with ongoing vaginal discharge and severe abdominal pain approximately one month post-hysterectomy. She reports persistent vaginal discharge that remains unchanged in amount. For a couple of days, she experienced chunky brown tissue discharge, though she did not notice this yesterday or this morning. Yesterday, she developed severe pain that prevented her from walking and required her to lie down all day. She describes the pain as originating from her lower abdomen and radiating downward when she attempts to massage the area. She has a history of hysterectomy approximately one month prior to current visit. The patient reports normal bowel movements, occurring twice daily as usual, though she did not have a bowel movement yesterday. She notes some urinary discomfort but states she is urinating normally. She completed her last dose of vaginal cream yesterday, which she feels helped with associated itchiness. The patient has been taking Metro (oral form), which has been causing nausea and was finished yesterday. She also used vaginal cream (same medicine as Metro in cream form) and used the last syringe yesterday, which was helping with itchiness. While the smell of her discharge has improved, the amount remains unchanged. She lives with children who require drop-off at school in the morning. ROS: General: Positive for nausea. Gastrointestinal: Negative for bowel movement issues, reports normal bowel frequency. Genitourinary: Positive for urinary discomfort, negative for difficulty urinating. Exam General General Appearance: alert, in no apparent distress and healthy appearing Head Head exam: atraumatic Neck Neck exam: Present normal inspection and trachea midline Chest Chest inspection: Present normal inspection and symmetric chest wall rise External exam: Present normal external exam; Absent tenderness Neuro Neurological exam: Present oriented X3 Psych Psychiatric exam: Present normal affect and normal mood Office Procedures OBC Clinic LOC & Office Proc's Nursing/Assessment Patient Status: Established Patient OB Clinic Nursing Assessment: Medication Reconciliation, Update PMH in EMR and Vital Signs OB Clinic Coordination of Care: Complex Care and Chronic Disease 1-5, Education Complex Pt/Fam, Consent,records obtained, informed consent, Results/Orders obtained and Staff clarify orders Established Patient Charge Established Patient Point Assignment: 95 Established Patient Point Charge: EP Level 3 (80-115) Assessment & Plan Diagnosis / Problem List (1) Vaginal cuff cellulitis: Status: Acute (2) Postoperative wound infection: Status: Acute (3) Peritonitis, unspecified: Status: Acute (4) Adverse drug event: Status: Acute Plan Suspected Peritonitis Post-Hysterectomy: - Patient approximately one month status post hysterectomy with persistent vaginal discharge and severe pelvic pain. - [place]lain brown tissue discharge with negative vaginitis panel indicating higher reproductive tract infection. - Clinical presentation consistent with peritonitis, likely secondary to infection ascending through gaps in suture lines. - Oral antibiotics ineffective in resolving symptoms. Plan: - Hospital admission for 24 hours for IV antibiotic therapy. - CT scan to evaluate internal structures. - Continue same antibiotic in IV form during hospitalization, then discharge home with oral regimen. - Patient advised to stay home and avoid going out. - Clinician will provide heads-up call to emergency department. Medication Intolerance: - Patient experiencing nausea from current metronidazole therapy. - Completed vaginal cream form which provided some relief from associated itching symptoms. Plan: - Discontinue current metronidazole due to nausea. - Prescribe alternative antibiotic regimen.
[2025-02-26 08:32] VITALS: BP 106/76; PULSE 89; RESP 17; TEMP 37; O2SAT 96; BMI 39.4
== END 2025-02-26 08:50 | disposition home or self-care (01) ==
LOC: HODSOBC 08:19
PROVIDERS: Supervising Provider Obstetrics & Gynecology; Visit Provider Obstetrics & Gynecology
DX: T81.49XA Infection following a procedure, other surgical site, initial encounter (principal); K65.9 Peritonitis, unspecified; N73.0 Acute parametritis and pelvic cellulitis; R11.0 Nausea; T37.8X5A Adverse effect of other specified systemic anti-infectives and antiparasitics, initial encounter; Y83.6 Removal of other organ (partial) (total) as the cause of abnormal reaction of the patient, or of later complication, without mention of misadventure at the time of the procedure
CPT/HCPCS: 99213; G0463

== ENCOUNTER 2025-02-27 08:42 | Inpatient (IN) | payer MEDICAID, SELFPAY ==
[2025-02-27 09:06] VITALS: BP 136/90; PULSE 89; RESP 18; TEMP 36.5; O2SAT 97; BMI 39.2
--- NOTE | 2025-02-27 09:21 | XR_ITS ---
Examination: CT abdomen with intravenous contrast CT pelvis with intravenous contrast 2-D coronal reconstructions 2-D sagittal reconstructions Date and time of exam: February 27, 2025, 1243 hours INDICATIONS: Status post abdominal pelvic pain post hysterectomy 1 month ago. CTDI: vol (mGy) 32.2 DLP: (mGycm) 1226 Technique: Multiple axial sections of the abdomen and pelvis have been obtained. 64 slice high-resolution scanner used. 3 mm axial sections have been obtained, post intravenous injection 60 cc [id number] 2-D sagittal, coronal reconstructions obtained. Low dose protocols were performed. One or more of the following dose reduction techniques were used; automated exposure control, adjustment of the mA and/or KV according to patient size, use of iterative reconstruction technique. Findings: 10 mm right lobe liver cyst No intra hepatic biliary tract dilatation Absent gallbladder No pancreatic mass No extrahepatic biliary tract dilatation Normal adrenal glands No renal or ureteral calculi, no hydronephrosis Aorta normal size Normal appendix No bowel obstruction Colonic diverticulosis, no diverticulitis 17 mm left ovarian follicular cyst Absent uterus Contracted urinary bladder No pelvic hematoma or abscess Intact osseous structures IMPRESSION: Normal appendix No bowel obstruction. Colonic diverticulosis, no diverticulitis. 17 mm left ovarian follicular cyst Absent uterus No pelvic hematoma or abscess
--- NOTE | 2025-02-27 09:21 | EKG_ITS ---
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
[2025-02-27 09:28] VITALS: BP 131/79; PULSE 75; RESP 18; TEMP 37.1; O2SAT 96
[2025-02-27] MEDS: ONDANSETRON INJ 2 MG/ML INJ 2 ML 4 MG IVP (10:05)
[2025-02-27] MEDS: PIPER/TAZO 3.375 GM PREMIX 3.375 GM/50 ML BAG IV ×3 (10:06→23:55)
[2025-02-27 10:13] LABS: Lactate (Lactic Acid) 1.1 mMol/L (0.4-2.0)
[2025-02-27 10:14] LABS: Collection Type, Urine Clean Catch
[2025-02-27 10:25] LABS: Basophils # (Auto) 0.1 Thou/mm3 (0.0-0.2); Basophils % (Auto) 1 % (0-2.5); Eosinophils # (Auto) 0.2 Thou/mm3 (0.0-0.5); Eosinophils % (Auto) 3 % (0-10); Hematocrit 43.2 % (36.0-46.0); Hemoglobin 14.6 g/dL (12.0-16.0); Immature Granulocytes Auto 0.03 Thou/mm3 (0.00-0.00); Lymphocytes # (Auto) 2.1 Thou/mm3 (1.0-4.8); Lymphocytes % (Auto) 32 % (10-50); Mean Corpuscular HGB Conc 33.8 g/dl (31.0-37.0); Mean Corpuscular Hemoglobin 30.0 pg (25.0-35.0); Mean Corpuscular Volume 89 fL (80-100); Monocytes # (Auto) 0.5 Thou/mm3 (0.0-0.8); Monocytes % (Auto) 7 % (0-12); Neutrophils # (Auto) 3.9 Thou/mm3 (1.8-7.7); Neutrophils % (Auto) 57 % (37-80); Nucleated Red Blood Cell # 0.00 Thou/mm3 (0.00-0.00); Nucleated Red Blood Cell % 0 /100 WBC (0); Platelet Count 243 Thou/mm3 (140-440); RDW Standard Deviation 42.9 fL (36.4-46.3); Red Blood Count 4.87 Miln/mm3 (4.00-5.20); White Blood Count 6.8 Thou/mm3 (3.6-11.0)
[2025-02-27 10:42] LABS: Bacteria,Urine 3+; Bilirubin,Urine Negative (Negative); Blood,Urine 3+ (Negative); Color,Urine Yellow (Lt Yel-Yel); Culture Indicated,Urine Contaminated; Glucose, Urine Trace (Negative); Ketones,Urine Negative (Negative); Leukocyte Esterase,Urine Positive (Negative); Nitrite,Urine Negative (Negative); PH,Urine 5.5 (5.0-7.0); Protein,Urine 1+ (Neg - Trace); RBC,Urine 18 /hpf (0-3); Specific Gravity,Urine 1.031 (1.001-1.035); Squamous Epithelial Cell,Urine 55 /hpf (0-5); Urobilinogen,Urine Negative mg/dL (0.0-1.0); WBC,Urine 265 /hpf (0-5)
[2025-02-27] MEDS: DEXTROSE 5%-0.45% NS 1,000 ML 100 ML IV (10:50)
[2025-02-27 10:52] LABS: Alanine Aminotransferase 60 U/L (10-49); Albumin, Serum 4.3 gm/dL (3.5-5.0); Albumin/Globulin Ratio 1.6 (1.2-2.2); Alkaline Phosphatase 70 U/L (46-116); Anion Gap 8 (7-16); Aspartate Amino Transferase 57 U/L (0-34); BUN/Creatinine Ratio 9 Ratio (12-20); Bilirubin,Total 0.8 mg/dL (0.3-1.2); Blood Urea Nitrogen 7 mg/dL (9-23); Calcium 9.0 mg/dL (8.3-10.6); Calcium (Corrected) 9.0 mg/dL (8.5-10.1); Carbon Dioxide 25.2 mMol/L (20.0-31.0); Chloride 106 mMol/L (98-107); Creatinine (Component) 0.8 mg/dL (0.6-1.3); Estimated Creatinine Clearance 122.7 mL/min (>60); Globulin 2.7 gm/dL (2.3-3.5); Glucose 117 mg/dL (74-106); Lipase 48 U/L (12-53); Magnesium 2.2 mg/dL (1.6-2.6); Osmolality,Calculated 276 (275-295); Potassium 3.8 mMol/L (3.4-5.1); Procalcitonin 0.04 ng/ml (0.0-0.49); Sodium 139 mMol/L (136-145); Total Protein 7.0 gm/dL (5.7-8.2); eGFR > 60 See Note
[2025-02-27 11:00] VITALS: BP 101/64; PULSE 64; RESP 18; O2SAT 100
[2025-02-27 11:04] LABS: Clarity,Urine Cloudy (Clear/Hazy)
[2025-02-27 11:40] VITALS: BP 120/89; PULSE 69; RESP 16; TEMP 36.4; O2SAT 100
[2025-02-27 11:42] VITALS: BMI 39.1
--- NOTE | 2025-02-27 12:07 | PC.NURSE ---
Dr. Uribe confirms pt. can eat regular diet. aware waiting for CT scan.
--- NOTE | 2025-02-27 12:31 | PD.EDADULT ---
ED General RME/HPI General Chief complaint: General Adult/Misc Complain Stated complaint: INFECTION FROM HYSTERECTOMY; ADMIT PER DR. DYER Time Seen by Provider: 02/27/25 09:07 Arrival date/time: 02/27/25 08:42 RME / HPI RME / HPI narrative: 39 year old female who is s/p total abdominal hysterectomy performed 01/25/[address] Dyer presents to the ED referred by Dr. Dyer for admission for infection. Patient states in the last week she has had severe abdominal pain located across lower abdomen. Reportedly had consulted her VIDEO GAMES MECHANIC Dr. Dyer who started her on Metronidazole. States she was unable to tolerate medication and was switched to Levofloxacin with no improvement. Denies fevers, chills, vomiting, diarrhea, or urinary symptoms. Related Data Previous Rx's ?Medication ?Instructions ?Recorded docusate sodium 100 mg capsule 100 mg PO QDAY 30 days #30 caps 03/02/25 estradiol 0.01% (0.1 mg/gram) See Rx Instructions .Route 03/02/25 vaginal cream .COMPLEX 14 days #42.5 grams Allergies Allergy/AdvReac Type Severity Reaction Status Date / Time No Known Allergies Allergy Verified 02/27/25 08:47 Review of Systems Review of Systems Systems Reviewed: All systems reviewed, normal except as documented Past Medical History Past Medical History RESPIRATORY: Positive Bronchitis REPRODUCTIVE: Positive Endometriosis and Previous Pregnancies MUSCULOSKELETAL: Positive Musculoskeletal Disorders and Arthritis PSYCHO/SOCIAL: Positive Depression and Anxiety OTHER HISTORY: Positive Chicken Pox Family History FAMILY HISTORY: Positive Family Cardiac Disorders, Family Gastrointestinal Problems and Family Surgery Surgical History SURGICAL: Positive Tubal Ligation Social History SMOKING STATUS: Never smoker SECOND HAND EXPOSURE: No SUBSTANCE USE: does not use ED Exam Narrative Physical exam: GENERAL APPEARANCE: alert and oriented x 4, well-developed, well-nourished HEENT: Normocephalic, atraumatic; pupils equal, round, reactive to light; EOMI; mucous membranes pink, moist; oropharynx clear NECK: Supple LUNGS: CTABL; no wheezes, no rales, no rhonchi HEART: Regular rate, regular rhythm; normal S1, S2; no murmurs ABDOMEN: mildly abdominal distention; normal BS; soft, diffuse tenderness, no guarding, no rebound; no masses, no organomegaly, no hernia BACK: no CVA tenderness EXTREMITIES: atraumatic; no edema NEUROLOGIC: awake; alert and oriented x4; cranial nerves II-XII grossly intact; no focal sensory or motor deficits PSYCHIATRIC: appropriate mood and affect SKIN: warm, dry, normal color; no rashes Course Course Course Narrative: I spoke with patient VIDEO GAMES MECHANIC Dr. Dyer who agrees to admit the patient to his services. Quality Measures none Orders Category Date Time Status Admit to Inpatient Status Routine Admission 02/27/25 10:36 Active Patient Condition Routine Admission 02/27/25 10:35 Ordered Activity as Tolerated Routine Care 02/27/25 10:[address] Screening NOW Care 02/27/25 09:21 Completed EKG (ED ONLY) *Do not use* NOW Care 02/27/25 09:21 Completed Intake and Output QSHIFT Care 02/27/25 10:45 Ordered Notify provider NEEDED Care 02/27/25 10:35 Completed Sequential Compression Device QSHIFT Care 02/27/25 10:35 Completed Diet Regular Diet 02/27/[address] abdomen pelvis w con Stat Exams 02/27/25 09:21 Completed EKG (ED Only) Stat Exams 02/27/25 09:21 Draft Blood Culture (Lab) Stat Lab 02/27/25 09:55 Completed CBC AM DRAW Lab 02/28/25 04:28 Completed CBC Stat Lab 02/27/25 09:55 Completed Comprehensive Metabolic Panel AM DRAW Lab 02/28/25 04:28 Completed Comprehensive Metabolic Panel Stat Lab 02/27/25 09:55 Completed Lactate (Lactic Acid) Stat Lab 02/27/25 09:55 Completed Lipase Stat Lab 02/27/25 09:55 Completed Magnesium Stat Lab 02/27/25 09:55 Completed Procalcitonin Stat Lab 02/27/25 09:55 Completed UA, C/S IF [Urinalysis, C/S if Indicated] Stat Lab 02/27/25 10:00 Completed Acetaminophen Tab [Tylenol Tab] Med 02/27/25 10:35 Discontinued 650 mg PO Q6H PRN Docusate Sod [Colace] Med 02/28/25 09:00 Discontinued 100 mg PO QDAY HYDROcodone*/APAP 5/325 [Switzer 5/325] Med 02/27/25 10:35 Discontinued 1 tab PO Q4H PRN Ondansetron Inj [Zofran Inj] Med 02/27/25 10:35 Discontinued 4 mg IVP Q6H PRN Ondansetron Inj [Zofran Inj] Med 02/27/25 09:53 Discontinued 4 mg IVP X1 ONE Pantoprazole Inj [Protonix Inj] Med 02/27/25 10:45 Discontinued 40 mg IVP QDAY Piper/Tazo 3.375 gm Premix [Zosyn] Med 02/27/25 09:21 Discontinued 3.375 gm in 50 ml IV X1 Code Status Routine Oth 02/27/25 10:35 Completed Vital Signs Vital signs: Vital Signs Temperature 97.7 F 02/27/25 09:06 Pulse Rate 89 02/27/25 09:06 Respiratory Rate 18 02/27/25 09:06 Blood Pressure 136/90 H 02/27/25 09:06 Pulse Oximetry (%) 97 02/27/25 09:06 Oxygen Delivery Method Room Air 02/27/25 09:06 Pulse ox is 97% on room air which is adequate. Discharge Plan Plan Patient Disposition: Admit Acute Care w/in Hospital Patient condition on transfer: Stable Problem List Clinical Impression: Peritonitis, unspecified MDM Narrative MDM hospital course (for use when minimal MDM required): Analia Rowland am scribing for and in the presence of Dr. Amor. Clinical Information Provided by: patient Medical Records reviewed [facility] Meds/Rx considered, not ordered None Labs/Rad/Tests considered, not ordered None Chronic Illness/Social Conditions which may negatively complicate care or outcome(s)-explain: None or not applicable EKG Interpretation EKG #1: EKG Interpretation: 09:54 AM, NSR, rate 69, no STEMI Labs Lab(s) Interpretation(s): No elevated WBC Imaging Imaging Interpretation(s): Ordering Physician: Lisa Amor MD Date of Service: 02/27/25 Procedure(s): CT abdomen pelvis w con Accession Number(s): [id number] cc: Aretha Perkins; Royer Yanes MD; Lisa Amor MD~ Examination: CT abdomen with intravenous contrast CT pelvis with intravenous contrast 2-D coronal reconstructions 2-D sagittal reconstructions Date and time of exam: February 27, 2025, 1243 hours INDICATIONS: Status post abdominal pelvic pain post hysterectomy 1 month ago. CTDI: vol (mGy) 32.2 DLP: (mGycm) 1226 Technique: Multiple axial sections of the abdomen and pelvis have been obtained. 64 slice high-resolution scanner used. 3 mm axial sections have been obtained, post intravenous injection 60 cc [id number] 2-D sagittal, coronal reconstructions obtained. Low dose protocols were performed. One or more of the following dose reduction techniques were used; automated exposure control, adjustment of the mA and/or KV according to patient size, use of iterative reconstruction technique. Findings: 10 mm right lobe liver cyst No intra hepatic biliary tract dilatation Absent gallbladder No pancreatic mass No extrahepatic biliary tract dilatation Normal adrenal glands No renal or ureteral calculi, no hydronephrosis Aorta normal size Normal appendix No bowel obstruction Colonic diverticulosis, no diverticulitis 17 mm left ovarian follicular cyst Absent uterus Contracted urinary bladder No pelvic hematoma or abscess Intact osseous structures IMPRESSION: Normal appendix No bowel obstruction. Colonic diverticulosis, no diverticulitis. 17 mm left ovarian follicular cyst Absent uterus No pelvic hematoma or abscess Dictated By: Royer Yanes MD Signed By: <Electronically signed by Royer Yanes MD in OV> 02/27/25 1313 Medication Administration(s) Medication Administration History Discontinued Medications Acetaminophen (Acetaminophen 325 Mg Tablet) 650 mg PO Q6H PRN PRN Reason: Fever >101.5 Stop: 03/29/25 10:34 Hydrocodone Bitart/Acetaminophen (Hydrocodone/Apap 5/325 Tablet) 1 tab PO Q4H PRN PRN Reason: PAIN SCALE 4-6 (Moderate Stop: 03/04/25 10:34 Last Admin: 03/02/25 09:36 Dose: 1 tab Documented By: Admin: 02/28/25 11:00 Dose: 1 tab Documented By: [email or web address] Bupivacaine HCl (Bupivacaine Mpf 0.5% 30 Ml Vial) Confirm Administered Dose 30 ml .ROUTE .STK-MED ONE Stop: 03/01/25 12:22 Docusate Sodium (Docusate Sod 100 Mg Capsule) 100 mg PO QDAY HELIO Stop: 03/30/25 08:59 Last Admin: 03/02/25 08:00 Dose: 100 mg Documented By: Admin: 03/01/25 08:19 Dose: 100 mg Documented By: Admin: 02/28/25 08:00 Dose: 100 mg Documented By: CHANA Fentanyl Citrate (Fentanyl Cit Inj 50 Mcg/Ml Amp 2ml) Confirm Administered Dose 100 mcg .ROUTE .STK-MED ONE Stop: 03/01/25 12:08 Glycopyrrolate (Glycopyrrolate Inj 0.2 Mg/Ml Vial 5 Ml) Confirm Administered Dose 1 mg .ROUTE .STK-MED ONE Stop: 03/01/25 12:11 Hydromorphone HCl (Hydromorphone Inj 2 Mg/Ml Vial) Confirm Administered Dose 2 mg .ROUTE .STK-MED ONE Stop: 03/01/25 12:08 Hydromorphone HCl (Hydromorphone Inj 2 Mg/Ml Vial) 0.4 mg IVP Q5M PRN PRN Reason: PAIN SCALE 7-10 (Severe Stop: 03/01/25 15:49 Hydromorphone HCl (Hydromorphone Inj 2 Mg/Ml Vial) 2 mg IVP Q4HR PRN PRN Reason: PAIN SCALE 7-10 (Severe Stop: 03/06/25 19:14 Piperacillin/Tazobactam/Dextrose (Zosyn) 3.375 gm in 50 mls @ 100 mls/hr IV X1 ONE; Protocol Stop: 02/27/25 09:50 Last Infusion: 02/27/25 10:40 Dose: Infused Documented By: Admin: 02/27/25 10:06 Dose: 100 mls/hr Documented By: BY Dextrose/Sodium Chloride (D5-1/2ns) 1,000 mls @ 100 mls/hr IV .Q10H HELIO Stop: 03/29/25 10:44 Last Admin: 02/27/25 10:50 Dose: 100 mls/hr Documented By: BY Piperacillin/Tazobactam/Dextrose (Zosyn) 3.375 gm in 50 mls @ 100 mls/hr IV Q8HR HELIO; Protocol Stop: 03/06/25 15:59 Last Admin: 02/27/25 16:09 Dose: Not Given Documented By: KF Non-Admin Reason: Discontinued Piperacillin/Tazobactam/Dextrose (Zosyn) 3.375 gm in 50 mls @ 12.5 mls/hr IV Q8H HELIO; Protocol Stop: 03/06/25 16:14 Last Admin: 03/02/25 08:00 Dose: 12.5 mls/hr Documented By: Infusion: 03/02/25 03:35 Dose: Infused Documented By: Admin: 03/01/25 23:35 Dose: 12.5 mls/hr Documented By: Infusion: 03/01/25 20:50 Dose: Infused Documented By: Admin: 03/01/25 16:50 Dose: 12.5 mls/hr Documented By: Infusion: 03/01/25 12:18 Dose: Infused Documented By: Admin: 03/01/25 08:18 Dose: 12.5 mls/hr Documented By: Infusion: 03/01/25 03:58 Dose: Infused Documented By: Admin: 02/28/25 23:58 Dose: 12.5 mls/hr Documented By: Infusion: 02/28/25 20:20 Dose: Infused Documented By: Admin: 02/28/25 16:20 Dose: 12.5 mls/hr Documented By: [email or web address] Infusion: 02/28/25 11:57 Dose: Infused Documented By: [email or web address] Admin: 02/28/25 07:57 Dose: 12.5 mls/hr Documented By: [email or web address] Infusion: 02/28/25 03:55 Dose: Infused Documented By: [email or web address] Admin: 02/27/25 23:55 Dose: 12.5 mls/hr Documented By: Infusion: 02/27/25 20:10 Dose: Infused Documented By: Admin: 02/27/25 16:10 Dose: 12.5 mls/hr Documented By: GERSON Acetaminophen (Ofirmev Inj) Confirm Administered Dose 100 mls @ ud IV .STK-MED ONE Stop: 03/01/25 12:19 Promethazine HCl 12.5 mg/ (Sodium Chloride) 50.5 mls @ 2.5 mls/min IV X1 ONE Stop: 03/01/25 14:09 Last Admin: 03/01/25 15:34 Dose: 2.5 mls/min Documented By: Promethazine HCl 25 mg/ Sodium (Chloride) 51 mls @ 2.5 mls/min IV Q6HR PRN; Protocol PRN Reason: NAUSEA Dextrose/Sodium Chloride (D5-1/2ns) 1,000 mls @ 100 mls/hr IV .Q10H HELIO Stop: 03/31/25 19:14 Last Admin: 03/01/25 19:50 Dose: Not Given Documented By: RAUDEL Non-Admin Reason: ON HOLD PER MANISHA Lidocaine HCl (Lidocaine Inj 2% 20 Mg/Ml Syringe 5 Ml) Confirm Administered Dose 100 mg .ROUTE .STK-MED ONE Stop: 03/01/25 12:34 Loratadine (Loratadine 10 Mg Tablet) 10 mg PO QDAY PRN PRN Reason: allergy symptoms Last Admin: 02/28/25 21:19 Dose: 10 mg Documented By: CORDELL Lorazepam (Lorazepam 0.5 Mg Tablet) 2 mg PO HS PRN PRN Reason: INSOMNIA Stop: 03/06/25 19:13 Last Admin: 03/01/25 20:40 Dose: 2 mg Documented By: RAUDEL Melatonin (Melatonin 3 Mg Tablet) 6 mg PO HS HELIO Stop: 03/29/25 20:59 Last Admin: 02/28/25 20:30 Dose: 6 mg Documented By: Admin: 02/27/25 21:04 Dose: 6 mg Documented By: DEIRDRE Midazolam HCl (Midazolam Inj 1 Mg/Ml Vial 2 Ml) Confirm Administered Dose 2 mg .ROUTE .STK-MED ONE Stop: 03/01/25 12:09 Ondansetron HCl (Ondansetron Inj 2 Mg/Ml Inj 2 Ml) 4 mg IVP X1 ONE; Protocol Stop: 02/27/25 09:54 Last Admin: 02/27/25 10:05 Dose: 4 mg Documented By: BY Ondansetron HCl (Ondansetron Inj 2 Mg/Ml Inj 2 Ml) 4 mg IVP Q6H PRN PRN Reason: NAUSEA OR VOMITING Stop: 03/29/25 10:34 Ondansetron HCl (Ondansetron Inj 2 Mg/Ml Inj 2 Ml) 4 mg IVP X1 ONE Stop: 03/01/25 13:50 Last Admin: 03/01/25 14:25 Dose: 4 mg Documented By: MIRNA Pantoprazole Sodium (Pantoprazole Inj 40 Mg Vial) 40 mg IVP QDAY HELIO Stop: 03/29/25 10:44 Last Admin: 03/02/25 07:59 Dose: 40 mg Documented By: Admin: 03/01/25 08:19 Dose: 40 mg Documented By: Admin: 02/28/25 08:00 Dose: 40 mg Documented By: [email or web address] Admin: 02/27/25 10:50 Dose: 40 mg Documented By: BY Propofol (Propofol Inj 10 Mg/Ml Vial 20 Ml) Confirm Administered Dose 200 mg IV .STK-MED ONE Stop: 03/01/25 12:08 Propofol (Propofol Inj 10 Mg/Ml Vial 20 Ml) Confirm Administered Dose 200 mg IV .STK-MED ONE Stop: 03/01/25 12:21 Rocuronium [place] (Rocuronium Inj 10 Mg/Ml Vial 10 Ml) Confirm Administered Dose 100 mg .ROUTE .STK-MED ONE Stop: 03/01/25 12:09 Sugammadex Sodium (Sugammadex Inj 100 Mg/Ml 2ml Vial) Confirm Administered Dose 200 mg .ROUTE .STK-MED ONE Stop: 03/01/25 13:15 See above
[2025-02-27 16:00] VITALS: BP 91/62; PULSE 63; RESP 16; TEMP 36.6; O2SAT 96
--- NOTE | 2025-02-27 17:13 | ESHP_ITS ---
Documentation for date of: 02/27/25 PATIENT COORDINATOR FRONT DESK - HPI History of Present Illness History of present illness: Ms. HENDRICKS is a 39 year old female who presents with ongoing vaginal discharge and severe abdominal pain following a total abdominal hysterectomy one month ago. She reports experiencing these symptoms for approximately 5 to 7 days. The patient's vaginal discharge has been persistent and unchanged. Initially, she experienced chunky brown tissue discharge and bleeding, which has since improved. She has been seen at 2 to 3 day intervals over the past week for these concerns. The abdominal pain has become severe, causing the patient to curl over in pain. Ms. Hendricks was initially prescribed metronidazole for her symptoms but could not tolerate it due to severe nausea. She was then switched to levofloxacin. Despite these treatments, her symptoms have persisted. The patient denies any fever or systemic symptoms and reports normal bowel movements and bladder function. The patient's recent medical history is significant for a total abdominal hysterectomy performed one month ago. This current presentation suggests possible post-surgical complications. She is a 39-year-old female. The patient has been taking metronidazole which was discontinued due to severe nausea, then switched to levofloxacin, and has received IV Zosyn in the ER on arrival. ROS: Negative except as stated above, limited to PATIENT COORDINATOR FRONT DESK and pertinent complaints. Meds Home Medications and Allergies Home Medications ?Medication ?Instructions ?Recorded ?Confirmed ?Type No Known Home Medications 02/27/2512/15 History Allergies Allergy/AdvReac Type Severity Reaction Status Date / Time No Known Allergies Allergy Verified 02/27/25 08:47 Exam - PATIENT COORDINATOR FRONT DESK Vital Signs Temp Pulse Resp BP Pulse Ox O2 Del Method 97.8 F 63 16 91/62 96 Room Air 02/27/25 16:00 02/27/25 16:00 02/27/25 16:00 02/27/25 16:00 02/27/25 16:00 02/27/25 16:00 Narrative Exam Vaginal cuff probed and noted to be intact. PATIENT COORDINATOR FRONT DESK - Results Labs 02/27/25 09:55 02/27/25 09:55 Labs: Short CBC 02/27/25 Range/Units 09:55 WBC 6.8 (3.6-11.0) Thou/mm3 Hgb 14.6 (12.0-16.0) g/dL Hct 43.2 (36.0-46.0) % Plt Count 243 D (140-440) Thou/mm3 BMP 02/27/25 09:55 Sodium 139 Potassium 3.8 Chloride 106 Carbon Dioxide 25.2 BUN 7 L Creatinine 0.8 Glucose 117 H Calcium 9.0 Liver Function 02/27/25 Range/Units 09:55 Total Bilirubin 0.8 (0.3-1.2) mg/dL AST 57 H (0-34) U/L ALT 60 H (10-49) U/L Alkaline Phosphatase 70 (46-116) U/L Albumin 4.3 (3.5-5.0) gm/dL Urine 02/27/25 Range/Units 10:00 Urine Color Yellow (Lt Yel-Yel) Urine Clarity Cloudy A (Clear/Hazy) Urine pH 5.5 (5.0-7.0) Ur Specific [place] 1.031 (1.001-1.035) Urine Protein 1+ A (Neg - Trace) Urine Glucose (UA) Trace (Negative) Assessment and Plan Assessment and plan (1) Peritonitis, unspecified: Status: Acute Assessment and plan: Suspected Post-Surgical Peritonitis: - Patient underwent total abdominal hysterectomy one month ago. - Severe abdominal pain and persistent vaginal discharge for 5-7 days. - Initially had chunky brown tissue discharge and bleeding, now improved. - Severe abdominal pain to the point of curling over. - Denies fever, systemic symptoms, reports normal bowel movements and bladder function. - Vaginal cuff probed and noted to be intact on examination. Plan: - Admit to inpatient for further evaluation and management. - Initiate IV antibiotics with Zosyn. - CT scan results reviewed, no evidence of pelvic hematoma or abscess. - Monitor patient for the next 24 hours. - Adjust management based on clinical course. - Patient previously prescribed metronidazole but could not tolerate due to severe nausea. - Switched to levofloxacin prior to admission. (2) Postoperative wound infection: Status: Acute (3) Other specified postprocedural states: Status: Acute (4) Unspecified abdominal pain: Status: Acute Quality Measures Quality Measures VTE prophylaxis
--- NOTE | 2025-02-27 19:31 | PC.NURSE ---
Pt. requesting sleep aid. Dr. Uribe orders Melatonin 6mg PO HS
[2025-02-27 20:00] VITALS: BP 133/72; PULSE 68; RESP 20; TEMP 36.3; O2SAT 93
[2025-02-27] MEDS: MELATONIN 3 MG TABLET 6 MG PO (21:04)
[2025-02-28] VITALS: BP 114/70; PULSE 72; RESP 16; TEMP 36.6; O2SAT 94
[2025-02-28 04:00] VITALS: BP 127/74; PULSE 74; RESP 18; TEMP 37.1; O2SAT 95
[2025-02-28 05:31] LABS: Basophils # (Auto) 0.1 Thou/mm3 (0.0-0.2); Basophils % (Auto) 1 % (0-2.5); Eosinophils # (Auto) 0.3 Thou/mm3 (0.0-0.5); Eosinophils % (Auto) 4 % (0-10); Hematocrit 40.9 % (36.0-46.0); Hemoglobin 13.7 g/dL (12.0-16.0); Immature Granulocytes Auto 0.02 Thou/mm3 (0.00-0.00); Lymphocytes # (Auto) 2.2 Thou/mm3 (1.0-4.8); Lymphocytes % (Auto) 25 % (10-50); Mean Corpuscular HGB Conc 33.5 g/dl (31.0-37.0); Mean Corpuscular Hemoglobin 29.7 pg (25.0-35.0); Mean Corpuscular Volume 89 fL (80-100); Monocytes # (Auto) 0.6 Thou/mm3 (0.0-0.8); Monocytes % (Auto) 7 % (0-12); Neutrophils # (Auto) 5.5 Thou/mm3 (1.8-7.7); Neutrophils % (Auto) 63 % (37-80); Nucleated Red Blood Cell # 0.00 Thou/mm3 (0.00-0.00); Nucleated Red Blood Cell % 0 /100 WBC (0); Platelet Count 195 Thou/mm3 (140-440); RDW Standard Deviation 43.0 fL (36.4-46.3); Red Blood Count 4.62 Miln/mm3 (4.00-5.20); White Blood Count 8.8 Thou/mm3 (3.6-11.0)
[2025-02-28 05:58] LABS: Alanine Aminotransferase 66 U/L (10-49); Albumin, Serum 3.9 gm/dL (3.5-5.0); Albumin/Globulin Ratio 1.6 (1.2-2.2); Alkaline Phosphatase 62 U/L (46-116); Anion Gap 9 (7-16); Aspartate Amino Transferase 49 U/L (0-34); BUN/Creatinine Ratio 9 Ratio (12-20); Bilirubin,Total 0.9 mg/dL (0.3-1.2); Blood Urea Nitrogen 7 mg/dL (9-23); Calcium 9.1 mg/dL (8.3-10.6); Calcium (Corrected) 9.2 mg/dL (8.5-10.1); Carbon Dioxide 24.6 mMol/L (20.0-31.0); Chloride 105 mMol/L (98-107); Creatinine (Component) 0.8 mg/dL (0.6-1.3); Estimated Creatinine Clearance 122.7 mL/min (>60); Globulin 2.4 gm/dL (2.3-3.5); Glucose 112 mg/dL (74-106); Osmolality,Calculated 276 (275-295); Potassium 4.0 mMol/L (3.4-5.1); Sodium 139 mMol/L (136-145); Total Protein 6.3 gm/dL (5.7-8.2); eGFR > 60 See Note
[2025-02-28 07:15] VITALS: BP 112/84; PULSE 73; RESP 16; TEMP 35.8; O2SAT 92
[2025-02-28] MEDS: PIPER/TAZO 3.375 GM PREMIX 3.375 GM/50 ML BAG IV ×3 (07:57→23:58)
[2025-02-28] MEDS: DOCUSATE SOD 100 MG CAPSULE PO (08:00)
--- NOTE | 2025-02-28 10:45 | PC.SS ---
Follow up note: Pt is on IV antibiotic. Pt will return home upon dc.
[2025-02-28] MEDS: HYDROcodone/APAP 5/325 TABLET 1 TAB PO (11:00)
[2025-02-28 11:30] VITALS: BP 109/64; PULSE 59; RESP 15; TEMP 35.7; O2SAT 98
--- NOTE | 2025-02-28 13:34 | PC.SS ---
SS met with patient regarding her d/c plan. Pt is alert/oriented. Pt was admitted for Peritonitis. Pt confirmed demographic and contact information is correct on facesheet. Pt resides with and kids. Pt ambulates independently without assistance or DME. Pt is ok with all ADLs. 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 Patient?s pharmacy of choice is [facility] on [address] Pt named , Tico Salinas medical decision maker if he is unable. Patient?s choice is to return home upon d/c. Pt does not have an advance directive, SS offered, and pt declined. Pt states she is not diabetic and is not on dialysis. Pt followed up with PCP 3 months ago. will provide transportation home. D/C plan: Return home Next of Kin: Tico Salinas, , phone# [phone] PCP: [facility] Address: Correct on facesheet
[2025-02-28 15:20] VITALS: BP 109/78; PULSE 77; RESP 16; TEMP 36.2; O2SAT 95
[2025-02-28 20:00] VITALS: BP 111/73; PULSE 77; RESP 19; TEMP 36.1; O2SAT 93
[2025-02-28] MEDS: MELATONIN 3 MG TABLET 6 MG PO (20:30)
[2025-03-01] VITALS (13 sets, daily range): BP systolic 97–123; BP diastolic 63–89; PULSE 67–97; RESP 12–20; TEMP 36.2–37; O2SAT 95–99
[2025-03-01] MEDS: PIPER/TAZO 3.375 GM PREMIX 3.375 GM/50 ML BAG IV ×3 (08:18→23:35)
[2025-03-01] MEDS: DOCUSATE SOD 100 MG CAPSULE PO (08:19)
--- NOTE | 2025-03-01 09:51 | PD.LDPPPRG ---
Subjective Subjective Interval history: Patient examined at bedside. Continues to have vaginal drainage that looks like peritoneal fluid Reports regular bowel movement, denies any urinary incontinence that is different from her previous baseline No chest pain, shortness of breath, epigastric pain Incidentally noted liver cyst and diverticulosis Exam Vital Signs Temp Pulse Resp BP Pulse Ox O2 Del Method 98.3 F 84 18 121/76 96 Room Air 03/01/25 07:33 03/01/25 07:33 03/01/25 07:33 03/01/25 07:33 03/01/25 07:33 03/01/25 07:33 Constitutional Constitutional: no acute distress Routine HEENT Exam Head: Present normocephalic and atraumatic Eye: Present EOMI and PERRL ENT: Present mucous membranes moist Routine Neck Exam Neck: Present supple and trachea midline Routine Respiratory Exam Respiratory: Present chest non-tender, lungs clear, normal breath sounds and no resp distress Routine Cardiovascular Exam Cardiovascular: Present RRR Routine Abdominal Exam Abdominal: Present soft and normoactive bowel sounds Routine Extremities Exam Extremities: Present full ROM Routine Skin Exam Skin: Present intact, dry and warm Routine Neurological Exam Neurological: Present alert, oriented X3 and CN II-XII intact Routine Psychiatric Exam Psychiatric: Present normal affect and normal thought process Objective Labs 02/28/25 04:28 02/28/25 04:28 Assessment & Plan Problem List (1) Peritonitis, unspecified: Status: Acute (2) Postoperative wound infection: Status: Acute (3) Other specified postprocedural states: Status: Acute Assessment and plan: 39-year-old who is 1 month postoperative status post total abdominal hysterectomy. Patient continues to have drainage from the vaginal cuff. Afebrile, no signs of infection or sepsis Plan to take to the OR tomorrow for exam under anesthesia and possible diagnostic laparoscopy to inspect the vaginal cuff. CT scan is nondiagnostic. (4) Unspecified abdominal pain: Status: Acute Time Spent With Patient Time: Total time spent is greater than 50% in coordination of care (as documented) at patient's floor/unit and/or counseling patient:
--- NOTE | 2025-03-01 09:53 | ESPR_ITS ---
Documentation for date of: 03/01/25 INDUSTRIAL GAS SERVICER Subjective Subjective Interval history: Patient evaluated at bedside. Continues to have drainage from the vaginal cuff that is no longer foul-smelling or bloodstained but is consistent in appearance with clear peritoneal fluid. Denies any fever or chills. Denies any ongoing abdominal pain. Had a bowel movement. Voiding normally without any increase in her baseline stress incontinence Exam Vital Signs Temp Pulse Resp BP Pulse Ox O2 Del Method 98.3 F 84 18 121/76 96 Room Air 03/01/25 07:33 03/01/25 07:33 03/01/25 07:33 03/01/25 07:33 03/01/25 07:33 03/01/25 07:33 Constitutional Constitutional: no acute distress Routine HEENT Exam Head: Present normocephalic and atraumatic Eye: Present EOMI and PERRL ENT: Present mucous membranes moist Routine Neck Exam Neck: Present supple and trachea midline Routine Respiratory Exam Respiratory: Present chest non-tender, lungs clear, normal breath sounds and no resp distress Routine Cardiovascular Exam Cardiovascular: Present RRR Routine Abdominal Exam Abdominal: Present soft and normoactive bowel sounds Routine Extremities Exam Extremities: Present full ROM Routine Skin Exam Skin: Present intact and dry Routine Neurological Exam Neurological: Present alert, oriented X3 and CN II-XII intact Routine Psychiatric Exam Psychiatric: Present normal affect and normal thought process Urinary Catheter Management Cath placed during this visit: no INDUSTRIAL GAS SERVICER - PN: Obj Data Labs 02/28/25 04:28 02/28/25 04:28 INDUSTRIAL GAS SERVICER - A/P Assessment and plan (1) Peritonitis, unspecified: Status: Acute (2) Postoperative wound infection: Status: Acute (3) Other specified postprocedural states: Status: Acute Assessment and plan: Patient n.p.o. since midnight and consented for exam under anesthesia and diagnostic laparoscopy. Will continue antibiotics. Further management plan depends on operative findings. (4) Unspecified abdominal pain: Status: Acute Postoperative Procedures: Procedures Operation Date: 03/01/25 13:00 <No data on this case meets the specified criteria> Time Spent With Patient Time: Total time spent is greater than 50% in coordination of care (as documented) at patient's floor/unit and/or counseling patient: Time with patient: less than 15 minutes
--- NOTE | 2025-03-01 11:57 | PC.NURSE ---
PATIENT ALERT AND ORIENTED X4, TRANSFER TO OR VIA HOSPITAL BED. REPORT GIVEN TO KD GILES.
--- NOTE | 2025-03-01 13:42 | SUR.PHASEI ---
3260 Patient arrived to recovery resting comfortably in bed, on oxygen 8L via oxy mask, breathing unlabored, vital signs stable, denies pain, dressing intact to vaginal area; kerlix roll and peripad, no bleeding noted, denies nausea, report received from Ines GILES and Osorio WATTS
[2025-03-01] MEDS: ONDANSETRON INJ 2 MG/ML INJ 2 ML 4 MG IVP (14:25)
--- NOTE | 2025-03-01 14:35 | SUR.PHASEI ---
1425 patient had an episode of emesis 150ml green fluid, Zofran 4mg via IVP administer per anesthesia order 1435 medication effective, patient denies nausea
--- NOTE | 2025-03-01 14:43 | PC.NURSE ---
REPORT RECEIVED FROM EDUARDO GILES.
--- NOTE | 2025-03-01 14:58 | SUR.PHASEI ---
1442 Report given to Nguyen GILES, patient meets discharge criteria from recovery, awake and talking with staff, on oxygen 2L via nasal cannula, breathing unlabored, vital signs stable, denies pain, dressing intact; no bleeding noted, per patient her nausea is tolerable. 1458 Patient transported via bed to room 350 without incident, patient became a little nausea during transported, when arrived to her room, able to rest in bed, call light within reach when this script writer left patients room
--- NOTE | 2025-03-01 15:03 | PC.NURSE ---
PATIENT BACK FROM OR SHE IS ALERT AND ORIENTED X4 C/O NAUSEA AND VOMITING. COORDINATED CARE WITH PHARMACY THEY WILL BRING PROMETHAZINE UP TO THE FLOOR.
[2025-03-01] MEDS: PROMETHAZINE INJ 12.5 MG in SODIUM CHLORIDE 0.9% 50 ML 2.5 MG IV (15:34)
--- NOTE | 2025-03-01 19:18 | ESOP_ITS ---
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 Identity was confirmed by double identifiers and she was placed on the operating table in the dorsal lithotomy position. General anesthesia was administered and the airway was secured. The perineum was prepped in the usual sterile fashion and sterile drapes were applied. A self-retaining speculum was introduced and the vaginal cuff was examined the right end of the cuff was noted to be edematous and the sutures had broken through. Old suture material was removed. The cuff was copiously irrigated. A blunt probe was gently probed to feel the extent of the cuff separation and the peritoneum was noted to be intact. The cuff margins were grasped using Allis clamps and the cuff was sutured in 2 layers using [id number] sutures. Hemostasis was noted to be satisfactory. A layer of Surgicel was placed and a vaginal packing was applied. All instruments were now withdrawn. Patient was taken out of lithotomy position. General anesthesia was reversed and she was transferred to the recovery room in a stable and awake condition. Patient tolerated the entire procedure well. All instrument, lap and sponge counts were correct x 2. Estimated blood loss (ml): 20 Complications: none Surgical staff Operation Date: 03/01/25 13:00 Case Staff DEVELOPMENT CHEMIST: Christiano Sanchez Diagnosis Discharge Diagnosis (1) Other specified postprocedural states: Status: Acute (2) Vaginal cuff dehiscence: Status: Acute Problem List Completed Was Problem List Reviewed/Reconciled?: Yes
--- NOTE | 2025-03-01 19:47 | PC.NURSE ---
spoke to dr ross and he states to hold fluids if patient is tolerating meals. If patient begins to vomit, place pt NPO and restart D5 1/2NS @100ml/hr
[2025-03-02] VITALS: BP 95/67; PULSE 70; RESP 18; TEMP 36.2; O2SAT 98
[2025-03-02 04:00] VITALS: BP 92/60; PULSE 63; RESP 16; TEMP 36.6; O2SAT 100
[2025-03-02 07:19] VITALS: BP 116/69; PULSE 87; RESP 17; TEMP 36.2; O2SAT 97
[2025-03-02] MEDS: PIPER/TAZO 3.375 GM PREMIX 3.375 GM/50 ML BAG IV (08:00)
[2025-03-02] MEDS: DOCUSATE SOD 100 MG CAPSULE PO (08:00)
--- NOTE | 2025-03-02 08:26 | PC.NURSE ---
DR. MANISHA RAMIREZ, DISCHARGE INSTRUCTIONS GIVEN ALL QUESTIONS ANSWERS.
[2025-03-02] MEDS: HYDROcodone/APAP 5/325 TABLET 1 TAB PO (09:36)
--- NOTE | 2025-03-02 09:45 | ESPR_ITS ---
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 Vaginal packing removed with scant amount of bloodstained discharge. Was able to tolerate diet. Denies any nausea or vomiting. Has been voiding and had a bowel movement. No chest pain or shortness of breath. Exam Vital Signs Temp Pulse Resp BP Pulse Ox O2 Del Method O2 Flow Rate 97.1 F 87 17 116/69 97 Nasal Cannula 1 03/02/25 07:19 03/02/25 07:19 03/02/25 07:19 03/02/25 07:19 03/02/25 07:19 03/02/25 07:19 03/02/25 07:19 Constitutional Constitutional: no acute distress Routine HEENT Exam Head: Present normocephalic and atraumatic Eye: Present EOMI and PERRL ENT: Present mucous membranes moist Routine Neck Exam Neck: Present supple and trachea midline Routine Respiratory Exam Respiratory: Present chest non-tender, lungs clear, normal breath sounds and no resp distress Routine Cardiovascular Exam Cardiovascular: Present RRR Routine Abdominal Exam Abdominal: Present soft and normoactive bowel sounds Routine Extremities Exam Extremities: Present full ROM Routine Skin Exam Skin: Present intact and dry Routine Neurological Exam Neurological: Present alert, oriented X3 and CN II-XII intact Routine Psychiatric Exam Psychiatric: Present normal affect and normal thought process Urinary Catheter Management Cath placed during this visit: no HARDWARE SALES ASSISTANT - PN: [facility] 02/28/25 04:28 02/28/25 04:28 HARDWARE SALES ASSISTANT - A/P Assessment and plan (1) Other specified postprocedural states: Status: Acute (2) Vaginal cuff dehiscence: Status: Acute Assessment and plan: Postoperative day #1 status post repair of vaginal cuff. Discharge home today. Patient given strict precautions. Continue antibiotics for 7 days and estrogen vaginal cream as prescribed. Return to the office after 2 weeks. Postoperative Procedures: Procedures Operation Date: 03/01/25 13:00 Actual Procedure Side Surgeon p Exam Under General Anesthesia, Repair of Vaginal Cuff Bulmaro Uribe MD Time Spent With Patient Time: Total time spent is greater than 50% in coordination of care (as documented) at patient's floor/unit and/or counseling patient: Time with patient: less than 15 minutes
--- NOTE | 2025-03-02 09:46 | PD.GYNDS ---
Planned Discharge Date 03/02/25 DS: Providers Provider Date of admission: 02/27/25 10:36 Primary care physician: Aretha Perkins PA-C Admitting Provider: Bulmaro Uribe MD Attending Provider on Admission: Bulmaro Uribe MD Attending Provider on DC: Bulmaro Uribe MD Discharging Provider: Bulmaro Uribe MD DS: Diagnosis Discharge Diagnosis (1) Vaginal cuff dehiscence: Status: Acute (2) Unspecified abdominal pain: Status: Acute (3) Other specified postprocedural states: Status: Acute Problem List Completed Was Problem List Reviewed/Reconciled?: Yes Hospital Course Hospital Course Hospital course: Please refer to daily progress notes for details. 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 Vital Signs Temp Pulse Resp BP Pulse Ox O2 Del Method O2 Flow Rate 97.1 F 87 17 116/69 97 Nasal Cannula 1 03/02/25 07:19 03/02/25 07:19 03/02/25 07:19 03/02/25 07:19 03/02/25 07:19 03/02/25 07:19 03/02/25 07:19 Discharge Plan Plan Patient Disposition: HOME (Self Care) Patient condition on transfer: Stable Prescriptions/Referrals Prescriptions/Med Rec: New hydrocodone-acetaminophen 5-325 mg Tablet 1 tab PO Q6H MDD 4 PRN (Reason: Pain Scale 4-6 (Moderate) 5 Days Qty: 20 0RF docusate sodium 100 mg Capsule 100 mg PO QDAY 30 Days Qty: 30 0RF estradiol 0.01 % (0.1 mg/gram) cream See Rx Instructions .ROUTE .COMPLEX 14 Days Qty: 42.5 0RF Rx Instructions: Apply 1gm using applicator to vagina once a day at night Referrals: Aretha Perkins PA-C [Primary Care Provider] Bulmaro Uribe MD [Physician, ASSEMBLER CATERPILLAR SPIDER] Patient/Caregiver Discharge Instructions Education Materials: Preventing Vaginitis, Vaginal Infection Print Language: Kiswahili Stand Alone Forms: [facility] Award Info., Patient Portal Info Letter Discharge Order Discharge Orders: Discharge (Routine); Ordered 03/02/25 Ordered By: Bulmaro Uribe
[2025-03-02 10:30] VITALS: PULSE 88; RESP 100; RESP 18
== END 2025-03-02 10:40 | disposition home or self-care (01) | DRG 813 ==
LOC: SERX 10:05 → SERHOLD 11:00 → S3NX 11:34
PROVIDERS: Admitting Provider Obstetrics & Gynecology; Emergency Provider Emergency Medicine; PCP Physician Assistant; Visit Provider Obstetrics & Gynecology
PROC: 0UQG7ZZ Repair Vagina, Via Natural or Artificial Opening (ICD-10-PCS; CPT 49320; principal; 2025-03-01 12:45)
DX: T81.31XA Disruption of external operation (surgical) wound, not elsewhere classified, initial encounter (principal); K65.9 Peritonitis, unspecified; Z90.710 Acquired absence of both cervix and uterus; N89.8 Other specified noninflammatory disorders of vagina
CPT/HCPCS: 36415; 74177; 80053; 81001; 83605; 83690; 83735; 84145; 85025; 87040; 93005; 96365; 96375; 99284; A4649; J0131; J1171; J2250; J2405; J2470; J2543; J2550; J2704; J3010; J3490; J7042; Q9967; A9270; J1596

== ENCOUNTER 2025-03-16 13:01 | Outpatient (AMB) | payer MEDICAID, SELFPAY ==
[2025-03-16 13:07] VITALS: BP 122/81; PULSE 120; RESP 18; TEMP 36.2; O2SAT 98
--- NOTE | 2025-03-16 13:07 | AMB.GYNCLNOT ---
Vital Signs 03/16/25 13:07 Weight 113.852 kg Weight Measurement Method Standing Scale BP 122/81 Blood Pressure Source Automatic Cuff Blood Pressure Location Left Upper Arm Position Sitting Respiration 18 Pulse 120 H Pulse Source Monitor Temp 97.2 F Temp Source Oral Pulse Oximetry (%) 98 Oxygen Delivery Method Room Air Allergies/Home Meds Allergies & Medications Allergies No Known Allergies Allergy (Verified 03/16/25 13:08) Medication Reconciliation docusate sodium 100 mg capsule 100 mg PO QDAY 30 days #30 caps 03/02/25 [Rx Confirmed 03/16/25] Intake Visit Data Collection New Patient or Established: Established Patient (seen at [facility] within 3 years) 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 Visit:: OBSERVATION ASSISTANT Seen by Clinical Staff ONLY (RN/MA): No Skein Yarn Drier Required: No Do You Feel Safe at Home: Yes Authorities Contacted: N/A PCP or OBGYN visit in last 3 months: Yes Date of Last PCP or OBGYN visit: 03/02/25 Hx Now: No Are you currently on any form of Control: No Pain Present Currently: No Pain Scale Used: Wilhelm-Watson/Numerical Pain scale:: 0 Smoking Status Smoking Status: Never smoker Immunizations Flu Vaccine in the Last 12 Months: No Flu Vaccine Exclusion Criteria: No Exclusion Criteria Manager Clinical Pharmacy history Manager Clinical Pharmacy History Menstrual regularity: regular Flow: normal Monthly: No Age at menarche: 15 Menopausal: No Currently sexually active: Yes OBSERVATION ASSISTANT: Past Medical History Past Medical History: No Hx Neurological Disorders, No Hx Hypothyroidism, No Hx Hyperthyroidism, No Hx Cardiac Disorders, No Hx Hypertension, No Hx Blood Disorders, No Hx Anemia, No Hx Gastrointestinal Disorders, No Hx Renal Disease, No Hx Deep Vein Thrombosis, No Hx Diabetes Mellitus Type 1, No Hx Diabetes Mellitus Type 2, Yes Hx Tubal Ligation, No Hx Hysterectomy and No Psychiatric Problems Questionnaires Covid-19 Vaccine Questionnaire Has patient been vacinated for Covid-19 Have you been vacinated for Covid-19: No PHQ-9 PHQ-2 Over the last 2 weeks, how often have you been bothered by any of the following problems? 1. Little interest or pleasure in doing things: not at all 2. Feeling down, depressed, or hopeless: not at all Total score: 0 PHQ-9 3. Trouble falling or staying asleep, or sleeping too much: Not at all 4. Feeling tired or having little energy: Not at all 5. Poor appetite or overeating: Not at all 6. Feeling bad about yourself - or that you are a failure or have let yourself or your family down: Not at all 7. Trouble concentrating on things, such as reading the newspaper or watching television: Not at all 8. Moving or speaking so slowly that other people could have noticed? - Or the opposite - being so fidgety or restless that you have been moving around a lot more than usual: not at all 9. Thoughts that you would be better off or of hurting yourself in some way: Not at all Total score: 0 If you checked off any problems, how difficult have these problems made it for you to do your work, take care of things at home, or get along with other people?: not difficult at all Source: Developed by Drs. Herman Rondon, Abigail Conti, Zeeshan Cardona and colleagues, with an educational mark from [employer]. Depression screen completed yes Social History Living Situation History Lives With: Family Housing: House Housing Other:: Pt lives with and kids Tobacco History Smoking Status: Never smoker Second Hand Smoke Exposure: No Alcohol History Alcohol Intake: Current Alcohol Intake Frequency: holidays/special occasions only Substance Use History Substance Use: edibles for sleep Domestic Abuse History Do You Feel Safe at Home: Yes History of Present Illness HPI Narrative Paige Hendricks presents for a 2-week postoperative visit following vaginal cuff dehiscence repair performed on 03-01-2025. She has a history of total abdominal hysterectomy on 01-25-2025 with subsequent hospital readmission for dehiscence of the vaginal cuff. The patient reports that brown discharge stopped approximately 4 days ago, with gradual cessation noted over time. She currently has clear discharge with no white discharge or odor. She was prescribed vaginal cream upon discharge on Wednesday but was unable to obtain it until Wednesday due to pharmacy availability, so she started the cream on Wednesday and has 4 more days remaining in the treatment course. She completed her last antibiotic yesterday as prescribed. The patient denies any current drainage or discharge issues. She has been adhering to activity restrictions and has not resumed sexual intercourse as instructed. She has a surgical history of total abdominal hysterectomy on January 25, 2025 and vaginal cuff dehiscence repair on March 01, 2025 following hospital readmission for complications from the hysterectomy. The patient has been taking vaginal cream, started Wednesday after discharge with 4 more days remaining. She finished her antibiotic yesterday. She is currently on disability leave. ROS: Negative except as stated above, limited to OBSERVATION ASSISTANT and pertinent complaints. Exam Narrative Physical exam: Deferred Office Procedures OBC Clinic LOC & Office Proc's Nursing/Assessment Patient Status: Established Patient OB Clinic Nursing Assessment: Medication Reconciliation, Update PMH in EMR and Vital Signs OB Clinic Coordination of Care: Consent,records obtained, informed consent, Education Simp Pt/Fam, Lab and Imaging orders, Results/Orders obtained and Staff clarify orders Established Patient Charge Established Patient Point Assignment: 80 Established Patient Point Charge: EP Level 3 (80-115) Assessment & Plan Diagnosis / Problem List (1) Vaginal cuff dehiscence: Status: Acute (2) Other specified postprocedural states: Status: Acute Plan Vaginal Cuff Dehiscence Status Post Repair: - 2 weeks status post vaginal cuff dehiscence repair performed on 03-01-2025. - Initial total abdominal hysterectomy performed on 01-25-2025. - Brown discharge resolved 4 days ago. - Currently experiencing clear vaginal discharge without odor. - Completed antibiotic course yesterday. - Started vaginal cream on Wednesday with 4 days remaining in treatment course. Plan: - Continue current vaginal cream for remaining 4 days. - Maintain pelvic rest for at least one more month. - No intercourse until healing is confirmed and cleared by provider. - Follow-up appointment to assess healing and provide clearance. - Patient to provide disability number for documentation.
== END 2025-03-16 13:21 | disposition home or self-care (01) ==
LOC: HODSOBC 13:01
PROVIDERS: Supervising Provider Obstetrics & Gynecology; Visit Provider Obstetrics & Gynecology
DX: T81.328D Disruption or dehiscence of closure of other specified internal operation (surgical) wound, subsequent encounter (principal); Z98.890 Other specified postprocedural states; Z90.710 Acquired absence of both cervix and uterus; Y83.6 Removal of other organ (partial) (total) as the cause of abnormal reaction of the patient, or of later complication, without mention of misadventure at the time of the procedure
CPT/HCPCS: 99213; G0463

== ENCOUNTER 2025-04-06 09:32 | Outpatient (AMB) | payer MEDICAID, SELFPAY ==
--- NOTE | 2025-04-06 13:32 | AMB.GYNCLNOT ---
Allergies/Home Meds Allergies & Medications Allergies No Known Allergies Allergy (Verified 04/06/25 13:32) Medication Reconciliation ondansetron 4 mg disintegrating tablet 4 mg PO Q6H PRN nausea and vomiting 30 days #120 tabs 04/06/25 [Rx] sulfamethoxazole 800 mg-trimethoprim 160 mg tablet (Bactrim DS) 1 tab PO QHS 14 days #14 tabs 04/06/25 [Rx] sumatriptan succinate 50 mg tablet (Imitrex) See Rx Instructions PO .COMPLEX 30 days #30 tabs 04/06/25 [Rx] Intake Visit Data Collection New Patient or Established: Established Patient (seen at [facility] within 3 years) Reason for Visit:: OBC Consent obtained for Telemed Visit: Yes Seen by Clinical Staff ONLY (RN/MA): No Tube Bender Hand Required: No Do You Feel Safe at Home: Yes Authorities Contacted: N/A PCP or OBGYN visit in last 3 months: Yes Date of Last PCP or OBGYN visit: 03/02/25 Hx Now: No Are you currently on any form of Control: No Pain Present Currently: No Pain Scale Used: Wilheml-Watson/Numerical Pain scale:: 0 Smoking Status Smoking Status: Never smoker Immunizations Flu Vaccine in the Last 12 Months: No Flu Vaccine Exclusion Criteria: No Exclusion Criteria For Telemed visit only Telemed Video/Phone Visit: Yes Verbal consent obtained for Telemed visit?: Yes Verbal Consent witness name: GENNARO VELAZQUEZ MA/ KAILEY MILLER MA Fur 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 History Menstrual regularity: regular Flow: normal Monthly: Yes Age at menarche: 12 Menopausal: No 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 History Past Medical History: No Hx Neurological Disorders, No Hx Hypothyroidism, No Hx Hyperthyroidism, No Hx Cardiac Disorders, No Hx Hypertension, No Hx Blood Disorders, No Hx Anemia, No Hx Gastrointestinal Disorders, No Hx Renal Disease, No Hx Deep Vein Thrombosis, No Hx Diabetes Mellitus Type 1, No Hx Diabetes Mellitus Type 2, Yes Hx Tubal Ligation, No Hx Hysterectomy and No Psychiatric Problems Questionnaires Covid-19 Vaccine Questionnaire Has patient been vacinated for Covid-19 Have you been vacinated for Covid-19: Yes PHQ-9 PHQ-2 Over the last 2 weeks, how often have you been bothered by any of the following problems? 1. Little interest or pleasure in doing things: not at all 2. Feeling down, depressed, or hopeless: not at all Total score: 0 PHQ-9 3. Trouble falling or staying asleep, or sleeping too much: Not at all 4. Feeling tired or having little energy: Not at all 5. Poor appetite or overeating: Not at all 6. Feeling bad about yourself - or that you are a failure or have let yourself or your family down: Not at all 7. Trouble concentrating on things, such as reading the newspaper or watching television: Not at all 8. Moving or speaking so slowly that other people could have noticed? - Or the opposite - being so fidgety or restless that you have been moving around a lot more than usual: not at all 9. Thoughts that you would be better off or of hurting yourself in some way: Not at all Total score: 0 If you checked off any problems, how difficult have these problems made it for you to do your work, take care of things at home, or get along with other people?: not difficult at all Source: Developed by Drs. Herman Rondon, Abigail Conti, Zeeshan Cardona and colleagues, with an educational mark from [employer]. Depression screen completed yes Social History Living Situation History Lives With: Family Housing: House Housing Other:: Pt lives with and kids Tobacco History Smoking Status: Never smoker Second Hand Smoke Exposure: No Alcohol History Alcohol Intake: Current Alcohol Intake Frequency: holidays/special occasions only Substance Use History Substance Use: edibles for sleep Domestic Abuse History Do You Feel Safe at Home: Yes History of Present Illness HPI Narrative Paige Hendricks presents with recurrent bladder infections, post-surgical abdominal discomfort, and worsening migraines with associated nausea and vomiting following recent surgery. She reports experiencing frequent bladder infections lately, characterized by pain during urination, describing it as it hurts to pee sometimes, like a pain to pee. Over the past couple of weeks, she has been experiencing discomfort on her left side when turning in certain directions, describing it as almost feels like a burning, like pulling feeling in her abdominal muscles. This occurs in the context of having recently undergone surgery where abdominal muscles were involved. The patient has been suffering significantly with migraines, which have worsened recently. The migraines are associated with nausea and vomiting. Yesterday, she experienced a severe migraine that kept her bedridden for the entire day, during which she was unable to eat except for some crackers and vomited what she described as all acid. The severity of symptoms prevented her from getting up from bed at all yesterday. She has been taking prescribed ibuprofen, which provides some relief for her migraines. She has an upcoming appointment scheduled for April 16 for post-surgical follow-up, which will be approximately 6 weeks from her second surgery. ROS: Positive for nausea and vomiting, dysuria, left abdominal burning and pulling sensation with movement, and migraines. Negative except as stated above. Exam Narrative Physical exam: No exam due to televisit Office Procedures OBC Clinic LOC & Office Proc's Nursing/Assessment Patient Status: Established Patient OB Clinic Nursing Assessment: Medication Reconciliation and Update PMH in EMR OB Clinic Coordination of Care: Consent,records obtained, informed consent, Education Simp Pt/Fam, Lab and Imaging orders, Results/Orders obtained and Staff clarify orders Established Patient Charge Established Patient Point Assignment: 65 Telehealth If patient is seen using Teleconference methods, complete New/Est section, but DO NOT maisha points only maisha the correct Telemed visit type Telemed Phone/Video with patient in Clinic w/Dr,CORPORATE EXECUTIVE CHEF,PA outside Clinic: Yes Assessment & Plan Diagnosis / Problem List (1) Migraine aura without headache: Status: Acute (2) Recurrent UTI: Status: Acute Plan Recurrent Bladder Infections: - Patient reports painful urination consistent with recurrent urinary tract infections. - Symptoms include dysuria. Plan: - Prolonged course of antibiotics, once daily for 15 days. Post-surgical Abdominal Pain: - Patient experiencing burning and pulling sensation on the left side when turning, occurring several weeks after recent surgery. - Normal healing process of the rectus abdominis muscle fibers regenerating after surgical incision. Plan: - Reassurance that symptoms are normal part of healing process. Severe Migraines with Nausea: - Patient suffering from debilitating migraines causing significant functional impairment, including inability to get out of bed and complete food intolerance. - Associated symptoms include nausea and vomiting, with patient reporting throwing up acidic content and only tolerating crackers. - Currently managing with prescribed ibuprofen with some relief. Plan: - Prescribe Imitrex for specific migraine treatment. - Prescribe Zofran for nausea and vomiting. - Continue ibuprofen as currently prescribed. Post-surgical Follow-up: - Patient requires pelvic examination to assess healing of internal stitches before clearance for pelvic activity. - Appointment scheduled for April 16, which will be approximately 6 weeks post-second surgery, allowing adequate time for stitch dissolution. Plan: - Follow-up appointment scheduled for April 16. - Pelvic examination to check stitch healing before clearing for pelvic activity. - Reassess migraine and bladder infection treatments at follow-up visit.
== END 2025-04-06 14:20 | disposition home or self-care (01) ==
PROVIDERS: Supervising Provider Obstetrics & Gynecology; Visit Provider Obstetrics & Gynecology
DX: G43.109 Migraine with aura, not intractable, without status migrainosus (principal); N30.90 Cystitis, unspecified without hematuria; G89.18 Other acute postprocedural pain; R10.9 Unspecified abdominal pain; Z87.440 Personal history of urinary (tract) infections; Z98.890 Other specified postprocedural states
CPT/HCPCS: Q3014

== ENCOUNTER 2025-04-16 08:34 | Outpatient (AMB) | payer MEDICAID, SELFPAY ==
[2025-04-16 08:46] VITALS: BP 121/83; PULSE 83; RESP 16; TEMP 36.6; O2SAT 97; BMI 39.4
--- NOTE | 2025-04-16 08:46 | GYNCLNT_ITS ---
Vital Signs 04/16/25 08:46 Height 1.7 m Height Method Stated Weight 114.078 kg Weight Measurement Method Standing Scale BMI 39.4 BP 121/83 Blood Pressure Source Automatic Cuff Blood Pressure Location Left Upper Arm Position Sitting Respiration 16 Pulse 83 Pulse Source Monitor Temp 97.8 F Temp Source Oral Pulse Oximetry (%) 97 Oxygen Delivery Method Room Air Allergies/Home Meds Allergies & Medications Allergies No Known Allergies Allergy (Verified 04/16/25 08:46) Medication Reconciliation ondansetron 4 mg disintegrating tablet 4 mg PO Q6H PRN nausea and vomiting 30 days #120 tabs 04/06/25 [Rx Confirmed 04/16/25] sulfamethoxazole 800 mg-trimethoprim 160 mg tablet (Bactrim DS) 1 tab PO QHS 14 days #14 tabs 04/06/25 [Rx Confirmed 04/16/25] sumatriptan succinate 50 mg tablet (Imitrex) See Rx Instructions PO .COMPLEX 30 days #30 tabs 04/06/25 [Rx Confirmed 04/16/25] tamsulosin 0.4 mg capsule (Flomax) 0.4 mg PO QDAY 30 days #30 caps 04/16/25 [Rx] Intake Visit Data Collection New Patient or Established: Established Patient (seen at [facility] within 3 years) Reason for Visit:: POST OP Seen by Clinical Staff ONLY (RN/MA): No Disk Recoater Required: No Do You Feel Safe at Home: Yes Authorities Contacted: N/A PCP or OBGYN visit in last 3 months: Yes Hx Now: No Are you currently on any form of Control: No Last menstrual period: 03/17/25 Pain Present Currently: Yes Pain Location: Abdomen (LOWER ABDOMEN) Pain Scale Used: Wilhelm-Watson/Numerical Pain scale:: 0 Smoking Status Smoking Status: Never smoker Immunizations Flu Vaccine in the Last 12 Months: Yes Flu Vaccine Exclusion Criteria: Already 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 Menstrual regularity: irregular Flow: heavy Monthly: Yes How many days does period last: 7 Age at menarche: 13 Currently sexually active: Yes 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: Past Medical History Past Medical History: No Hx Neurological Disorders, No Hx Hypothyroidism, No Hx Hyperthyroidism, No Hx Cardiac Disorders, No Hx Hypertension, No Hx Blood Disorders, No Hx Anemia, No Hx Gastrointestinal Disorders, No Hx Renal Disease, No Hx Deep Vein Thrombosis, No Hx Diabetes Mellitus Type 1, No Hx Diabetes Mellitus Type 2, Yes Hx Tubal Ligation, No Hx Hysterectomy and No Psychiatric Problems Questionnaires Covid-19 Vaccine Questionnaire Has patient been vacinated for Covid-19 Have you been vacinated for Covid-19: Yes PHQ-9 PHQ-2 Over the last 2 weeks, how often have you been bothered by any of the following problems? 1. Little interest or pleasure in doing things: not at all 2. Feeling down, depressed, or hopeless: not at all Total score: 0 PHQ-9 3. Trouble falling or staying asleep, or sleeping too much: Not at all 4. Feeling tired or having little energy: Not at all 5. Poor appetite or overeating: Not at all 6. Feeling bad about yourself - or that you are a failure or have let yourself or your family down: Not at all 7. Trouble concentrating on things, such as reading the newspaper or watching television: Not at all 8. Moving or speaking so slowly that other people could have noticed? - Or the opposite - being so fidgety or restless that you have been moving around a lot more than usual: not at all 9. Thoughts that you would be better off or of hurting yourself in some way: Not at all Total score: 0 Source: Developed by Drs. Herman Rondon, Abigail Conti, Zeeshan Cardona and colleagues, with an educational mark from [employer]. Depression screen completed yes Social History Living Situation History Lives With: Family Housing: House Housing Other:: Pt lives with and kids Tobacco History Smoking Status: Never smoker Second Hand Smoke Exposure: No Alcohol History Alcohol Intake: Current Alcohol Intake Frequency: holidays/special occasions only Substance Use History Substance Use: edibles for sleep Domestic Abuse History Do You Feel Safe at Home: Yes History of Present Illness HPI Narrative Piage Hendricks presents for follow-up of post-surgical complications including bladder symptoms and discharge. She has been taking prescribed antibiotics as directed and reports completing a 2-week course, taking them at night without experiencing nausea. She describes having discharge but denies bleeding. The patient reports significant bladder-related symptoms that have worsened recently, including constant bladder spasms and pain with urination. She describes the discomfort as located right in that vaginal area and reports feeling pressure down there when walking. The symptoms were severe enough that she stayed in bed all day yesterday and feels unable to return to work at this time. She reports that her surgical incision is healing well, but attributes her primary issues to bladder problems. The patient acknowledges that she wears panty liners and understands that post-surgical changes to bladder anatomy can lead to urine accumulation when lying flat, potentially contributing to infection risk. She has a history of recent surgery with postoperative bladder complications including urinary tract infection and bladder spasms. The patient has been taking antibiotics at night for a 2-week course without experiencing nausea. The symptoms are significantly impacting her daily functioning and ability to work, requiring extension of her disability leave until May 28. She is currently on medical leave from work, with extension until May 28 due to post-surgical complications. ROS: Genitourinary: Positive for bladder spasms, pain with urination, vaginal discharge, pelvic pressure with walking. Negative for bleeding. Exam General General Appearance: alert, in no apparent distress and healthy appearing Head Head exam: atraumatic Neck Neck exam: Present normal inspection and trachea midline Chest Chest inspection: Present normal inspection and symmetric chest wall rise External exam: Present normal external exam; Absent tenderness Neuro Neurological exam: Present oriented X3 Psych Psychiatric exam: Present normal affect and normal mood Office Procedures OBC Clinic LOC & Office Proc's Nursing/Assessment Patient Status: Established Patient OB Clinic Nursing Assessment: Medication Reconciliation, Update PMH in EMR and Vital Signs OB Clinic Coordination of Care: Complex Care and Chronic Disease 1-5, Consent,records obtained, informed consent, Education Simp Pt/Fam, 1 Ins Authorization, Lab and Imaging orders, Results/Orders obtained and Staff clarify orders Established Patient Charge Established Patient Point Assignment: 120 Established Patient Point Charge: EP Level 4 (120-155) Assessment & Plan Diagnosis / Problem List (1) Recurrent UTI: Status: Acute (2) Migraine aura without headache: Status: Acute (3) Vaginal cuff dehiscence: Status: Acute (4) Other specified postprocedural states: Status: Acute (5) Other postprocedural complications and disorders of genitourinary system: Status: Acute Plan Post-surgical bladder complications: - Significant bladder dysfunction following recent surgery with bladder spasms, pelvic pain, and discharge without bleeding. - Anatomical changes from surgery contributing to urine accumulation when lying flat, leading to infection. - Worsened bladder spasms and discomfort causing functional impairment requiring extended time off work. - Pressure sensation with walking and pain in the vaginal area. - Incision site healing appropriately. Plan: - Prescribe Flomax for one month to relax bladder muscles. - Patient counseled that medication may slightly worsen incontinence and cause leaking with coughing. - Continue current antibiotic course as prescribed. - Urgent urology referral for cystoscopy and further bladder evaluation. - Disability extension until May 27 with return to work on May 28. - Complete work disability forms with provided disability number.
== END 2025-04-16 08:58 | disposition home or self-care (01) ==
LOC: HODSOBC 08:34
PROVIDERS: Supervising Provider Obstetrics & Gynecology; Visit Provider Obstetrics & Gynecology
DX: Z48.816 Encounter for surgical aftercare following surgery on the genitourinary system (principal); T81.31XA Disruption of external operation (surgical) wound, not elsewhere classified, initial encounter; N39.0 Urinary tract infection, site not specified; N31.9 Neuromuscular dysfunction of bladder, unspecified; G43.109 Migraine with aura, not intractable, without status migrainosus; Y83.8 Other surgical procedures as the cause of abnormal reaction of the patient, or of later complication, without mention of misadventure at the time of the procedure
CPT/HCPCS: 99214; G0463

== ENCOUNTER 2025-05-18 10:04 | Outpatient (AMB) | payer MEDICAID, SELFPAY ==
[2025-05-18 10:23] VITALS: BP 135/82; PULSE 83; RESP 18; TEMP 36.9; O2SAT 97; BMI 39.6
--- NOTE | 2025-05-18 10:23 | GYNCLNT_ITS ---
Vital Signs 05/18/25 10:23 Height 1.7 m Height Method Stated Weight 114.475 kg Weight Measurement Method Standing Scale BMI 39.6 BP 135/82 H Blood Pressure Source Automatic Cuff Blood Pressure Location Left Upper Arm Position Sitting Respiration 18 Pulse 83 Pulse Source Monitor Temp 98.5 F Temp Source Oral Pulse Oximetry (%) 97 Oxygen Delivery Method Room Air Allergies/Home Meds Allergies & Medications Allergies No Known Allergies Allergy (Verified 05/18/25 10:26) Medication Reconciliation ondansetron 4 mg disintegrating tablet 4 mg PO Q6H PRN nausea and vomiting 30 days #120 tabs 04/06/25 [Rx Confirmed 05/18/25] sumatriptan succinate 50 mg tablet (Imitrex) See Rx Instructions PO .COMPLEX 30 days #30 tabs 04/06/25 [Rx Confirmed 05/18/25] tamsulosin 0.4 mg capsule (Flomax) 0.4 mg PO QDAY 30 days #30 caps 04/16/25 [Rx Confirmed 05/18/25] Intake Visit Data Collection New Patient or Established: Established Patient (seen at [facility] within 3 years) Reason for Visit:: FOLLOW UP Seen by Clinical Staff ONLY (RN/MA): No Group Home Manager Required: No Do You Feel Safe at Home: Yes Authorities Contacted: N/A PCP or OBGYN visit in last 3 months: Yes Date of Last PCP or OBGYN visit: 04/16/25 Hx Now: No Are you currently on any form of Control: No Pain Present Currently: No Pain Scale Used: Wilhelm-Watson/Numerical Pain scale:: 0 Smoking Status Smoking Status: Never smoker Immunizations Flu Vaccine in the Last 12 Months: No Flu Vaccine Exclusion Criteria: No 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 Criteria 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 Menstrual regularity: regular Flow: normal Monthly: Yes Age at menarche: 12 Menopausal: No Currently sexually active: Yes Additional comments: HAD A HYSTRECTOMY R D INTERNSHIP: Past Medical History Past Medical History: No Hx Neurological Disorders, No Hx Hypothyroidism, No Hx Hyperthyroidism, No Hx Cardiac Disorders, No Hx Hypertension, No Hx Blood Disorders, No Hx Anemia, No Hx Gastrointestinal Disorders, No Hx Renal Disease, No Hx Deep Vein Thrombosis, No Hx Diabetes Mellitus Type 1, No Hx Diabetes Mellitus Type 2, Yes Hx Tubal Ligation, No Hx Hysterectomy and No Psychiatric Problems Questionnaires Covid-19 Vaccine Questionnaire Has patient been vacinated for Covid-19 Have you been vacinated for Covid-19: Yes PHQ-9 PHQ-2 Over the last 2 weeks, how often have you been bothered by any of the following problems? 1. Little interest or pleasure in doing things: not at all 2. Feeling down, depressed, or hopeless: not at all Total score: 0 PHQ-9 3. Trouble falling or staying asleep, or sleeping too much: Not at all 4. Feeling tired or having little energy: Not at all 5. Poor appetite or overeating: Not at all 6. Feeling bad about yourself - or that you are a failure or have let yourself or your family down: Not at all 7. Trouble concentrating on things, such as reading the newspaper or watching television: Not at all 8. Moving or speaking so slowly that other people could have noticed? - Or the opposite - being so fidgety or restless that you have been moving around a lot more than usual: not at all 9. Thoughts that you would be better off or of hurting yourself in some way: Not at all Total score: 0 If you checked off any problems, how difficult have these problems made it for you to do your work, take care of things at home, or get along with other people?: not difficult at all Source: Developed by Drs. Herman Rondon, Abigail Conti, Zeeshan Cardona and colleagues, with an educational mark from [employer]. Depression screen completed yes Social History Living Situation History Lives With: Family Housing: House Housing Other:: Pt lives with and kids Tobacco History Smoking Status: Never smoker Second Hand Smoke Exposure: No Alcohol History Alcohol Intake: Current Alcohol Intake Frequency: holidays/special occasions only Substance Use History Substance Use: edibles for sleep Domestic Abuse History Do You Feel Safe at Home: Yes History of Present Illness HPI Narrative Paige Hendricks presents for follow-up visit and reports doing well overall. She s tates that her entire household recently contracted the flu, which her children brought home from school. The patient reports that she was the only family member who received a flu shot this year and consequently experienced the mildest illness, while her children who received flu shots became very sick. She mentions that her still cannot smell or taste following her flu illness. The patient reports a significant issue with her disability benefits, stating that they were stopped because she apparently checked the wrong box on a form indicating she had recovered rather than that she was still under medical treatment. As a result, she has not received disability payments since the beginning of April and has been told she must pay back $1200. She describes this situation as making Della financially difficult. The patient has been attempting to contact the disability office, calling up to 20 times per day without success. She has a history of recent surgery with disability period extending to May 28 return date. The patient lives at home with children who attend school and is currently on disability benefits through Social Security. ROS: Not documented. Exam General General Appearance: alert, in no apparent distress and healthy appearing Head Head exam: atraumatic Neck Neck exam: Present normal inspection and trachea midline Chest Chest inspection: Present normal inspection and symmetric chest wall rise External exam: Present normal external exam; Absent tenderness Neuro Neurological exam: Present oriented X3 Psych Psychiatric exam: Present normal affect and normal mood Office Procedures OBC Clinic LOC & Office Proc's Nursing/Assessment Patient Status: Established Patient OB Clinic Nursing Assessment: Medication Reconciliation, Update PMH in EMR and Vital Signs OB Clinic Coordination of Care: Complex Care and Chronic Disease 1-5, Consent,records obtained, informed consent, Education Simp Pt/Fam, Lab and Imaging orders, Results/Orders obtained and Staff clarify orders Established Patient Charge Established Patient Point Assignment: 105 Established Patient Point Charge: EP Level 3 (80-115) Assessment & Plan Diagnosis / Problem List (1) Other postprocedural complications and disorders of genitourinary system: Status: Acute Plan Disability Paperwork Error: - Patient inadvertently checked wrong box on disability form indicating recovery rather than continued medical treatment. - Resulted in cessation of disability benefits and demand for $1200 repayment. - Patient has been without disability payments since early April. - Documentation shows patient was scheduled to return to work May 28, not that she had recovered. Plan: - Provide written letter documenting surgery date and disability period to support appeal. - Patient to visit Social Security office on [place] with documentation to correct error. - Letter will state patient had surgery and was disabled from surgery date through planned return date of May 28. - Patient scheduled to return May 28 (previously established return to work date).
== END 2025-05-18 10:48 | disposition home or self-care (01) ==
LOC: HODSOBC 10:04
PROVIDERS: Supervising Provider Obstetrics & Gynecology; Visit Provider Obstetrics & Gynecology
DX: Z09 Encounter for follow-up examination after completed treatment for conditions other than malignant neoplasm (principal); Z98.890 Other specified postprocedural states
CPT/HCPCS: 99213; G0463